=== PATIENT | male | born 1955 | race Caucasian/White ===

== ENCOUNTER 2017-02-17 21:28 | Emergency (ER) | payer MEDICARE ==
[~2017-02-17] VITALS: Ht 177.8 cm; Wt 110.0 kg
--- NOTE | 2017-02-17 23:39 | PD ---
HPI Chief Complaint: Alcohol/Drug Intoxication Time Seen by Provider: 23:29 Travel History International Travel<30 days: No Contact w/Intl Traveler<30days: No Traveled to known affect area: No History of Present Illness HPI Patient is a 61-year-old male brought to the emergency room by EMS for alcohol intoxication. Reports that patient was found intoxicated, he could not tell EMS where he lives. Patient was brought to the emergency room. Patient admits to drinking 2 large beers today, denies suicidal or homicidal coagulations. Patient with no complaints at this time. Patient reports that he recently moved from [place] to [facility], reports that this is why he does not know his address. [facility] Social History Alcohol Use: Yes Tobacco Use: Yes Substance Use: No Allergies-Medications (Allergen,Severity, Reaction): Coded Allergies: No Known Allergies (Unverified , 02/17/17) Reported Meds & Prescriptions Reported Meds & Active Scripts Active Active Prescriptions or Reported Medications Unobtainable Review of Systems ROS Limitations: Intoxication General / Constitutional: No: Fever Eyes: No: Visual changes HENT: No: Headaches Cardiovascular: No: Chest Pain or Discomfort Respiratory: No: Shortness of Breath Gastrointestinal: No: Abdominal Pain Genitourinary: No: Dysuria Musculoskeletal: No: Pain Skin: No Rash Neurologic: No: Weakness Psychiatric: No: Depression Endocrine: No: Polydipsia Hematologic/Lymphatic: No: Easy Bruising Physical Exam Narrative GENERAL: No acute distress, nontoxic SKIN: Focused skin assessment warm/dry. HEAD: Atraumatic. Normocephalic. EYES: Pupils equal and round. No scleral icterus. No injection or drainage. ENT: No nasal bleeding or discharge. Mucous membranes pink and moist. NECK: Trachea midline. No JVD. CARDIOVASCULAR: Regular rate and rhythm. No murmur appreciated. RESPIRATORY: No accessory muscle use. Clear to auscultation. Breath sounds equal bilaterally. GASTROINTESTINAL: Abdomen soft, non-tender, nondistended. Hepatic and splenic margins not palpable. MUSCULOSKELETAL: No obvious deformities. No clubbing. No cyanosis. No edema. NEUROLOGICAL: Awake and alert. PSYCHIATRIC: Patient intoxicated appearing Data Data Last Documented VS Vital Signs Date Time Temp Pulse Resp B/P Pulse Ox O2 Delivery O2 Flow Rate FiO2 02/17/17 23:32 16 Orders Comprehensive Metabolic Panel (02/17/17 23:33) Drug Screen, Random Urine (02/17/17 23:33) Alcohol (Ethanol) (02/17/17 23:33) Salicylates (Aspirin) (02/17/17 23:33) Tylenol (Acetaminophen) (02/17/17 23:33) Labs Laboratory Tests Test 02/17/17 23:45 Sodium Level 142 MEQ/L Potassium Level 3.8 MEQ/L Chloride Level 103 MEQ/L Carbon Dioxide Level 30.2 MEQ/L Anion Gap 9 MEQ/L Blood Urea Nitrogen 13 MG/DL Creatinine 1.25 MG/DL Estimat Glomerular Filtration 58 ML/MIN Rate Random Glucose 82 MG/DL Calcium Level 8.3 MG/DL Total Bilirubin 0.3 MG/DL Aspartate Amino Transf 14 U/L (AST/SGOT) Alanine Aminotransferase 22 U/L (ALT/SGPT) Alkaline Phosphatase 53 U/L Total Protein 6.8 GM/DL Albumin 3.6 GM/DL Salicylates Level 4.7 MG/DL Acetaminophen Level LESS THAN 2.0 MCG/ML Ethyl Alcohol Level 231 MG/DL [facility] Medical Decision Making Medical Screen Exam Complete: Yes Emergency Medical Condition: Yes Interpretation(s) Vital Signs Date Time Temp Pulse Resp B/P Pulse Ox O2 Delivery O2 Flow Rate FiO2 02/17/17 23:32 16 Differential Diagnosis Differential includes alcohol intoxication, drug abuse, electrolyte abnormality Narrative Course 61-year-old male who presents to emergency room with complaints of acute alcohol intoxication. Patient was brought to emergency room under [place] as he was too intoxicated to tell authorities where he lived. Patient was brought to ER intoxicated. Denies suicidal or homicidal ideations. Plan to obtain alcohol level, UDS, BMP and monitor patient Laboratory Tests Test 02/17/17 23:45 Sodium Level 142 MEQ/L (136-145) Potassium Level 3.8 MEQ/L (3.5-5.1) Chloride Level 103 MEQ/L (98-107) Carbon Dioxide Level 30.2 MEQ/L (21.0-32.0) Anion Gap 9 MEQ/L (5-15) Blood Urea Nitrogen 13 MG/DL (7-18) Creatinine 1.25 MG/DL (0.60-1.30) Estimat Glomerular Filtration 58 ML/MIN (>89) Rate Random Glucose 82 MG/DL (74-106) Calcium Level 8.3 MG/DL (8.5-10.1) Total Bilirubin 0.3 MG/DL (0.2-1.0) Aspartate Amino Transf 14 U/L (15-37) (AST/SGOT) Alanine Aminotransferase 22 U/L (12-78) (ALT/SGPT) Alkaline Phosphatase 53 U/L (45-117) Total Protein 6.8 GM/DL (6.4-8.2) Albumin 3.6 GM/DL (3.4-5.0) Salicylates Level 4.7 MG/DL (2.8-20.0) Acetaminophen Level LESS THAN 2.0 MCG/ML (10.0-30.0) Ethyl Alcohol Level 231 MG/DL (0-5) Diagnosis Primary Impression: Alcohol intoxication Patient Instructions: General Instructions Additional Instructions: Please drink responsibly Follow up with your primary care doctor Return to ER as needed Scripts Unable to Obtain Active Prescriptions or Reported Meds Chela Gillespie DO Feb 17, 2017 23:39
[2017-02-18 00:38] LABS: ALT (GPT) 22 U/L (12-78); ANION GAP 9 MEQ/L (5-15); AST (GOT) 14 U/L (15-37); BICARBONATE 30.2 MEQ/L (21.0-32.0); BLOOD UREA NITROGEN 13 MG/DL (7-18); CHLORIDE 103 MEQ/L (98-107); GLOMERULAR FILTRATION RATE 58 ML/MIN (>89); POTASSIUM 3.8 MEQ/L (3.5-5.1); SODIUM (NA) 142 MEQ/L (136-145)
[2017-02-18 00:40] LABS: ACETAMINOPHEN LESS THAN 2.0 MCG/ML (10.0-30.0); ALKALINE PHOSPHATASE 53 U/L (45-117); TOTAL BILIRUBIN ADULT 0.3 MG/DL (0.2-1.0)
[2017-02-18 01:14] VITALS: BP 127/78; PULSE 89; RESP 18; TEMP 98.1; O2SAT 98
[2017-02-18] MEDS ORDERED: HALO100P IM (01:15)
[2017-02-18 02:23] LABS: AMPHETAMINE, URINE NEG (NEG); BARBITURATES, URINE NEG (NEG); COCAINE, URINE NEG (NEG)
== END 2017-02-18 06:19 | disposition home or self-care (01) ==
LOC: NEPD 21:28
DX: F10.920 Alcohol use, unspecified with intoxication, uncomplicated (principal); F17.290 Nicotine dependence, other tobacco product, uncomplicated
CPT/HCPCS: 80053; 80307; 99283

== ENCOUNTER 2017-08-29 13:25 | Emergency (ER) | payer MEDICARE, OTHER ==
[~2017-08-29 13:25] MED LIST: HALO100P IM
[2017-08-29 13:28] VITALS: BP 171/94; PULSE 88; RESP 14; TEMP 98.6; O2SAT 96
[2017-08-29 13:46] VITALS: BP 158/91; PULSE 92; RESP 21; O2SAT 97
[2017-08-29] MEDS ORDERED: ASPI-516 PO (14:01)
[2017-08-29] MEDS ORDERED: BENZ0.5T PO (14:01)
[2017-08-29] MEDS ORDERED: OLAN7.5T PO (14:01)
[2017-08-29] MEDS ORDERED: ATEN25TA PO (14:01)
[2017-08-29] MEDS ORDERED: CLON0.5T PO (14:01)
--- NOTE | 2017-08-29 14:13 | PD ---
HPI Chief Complaint: General Weakness Time Seen by Provider: 13:58 Travel History International Travel<30 days: No Contact w/Intl Traveler<30days: No Traveled to known affect area: No History of Present Illness HPI 62-year-old male patient with history of hypertension, is here because of 3 weeks history of dizziness, feeling unsteady, he states this started after he fell and hit his head. He denies any chest pains, shortness of breath, but states that in the last day he has had a few episodes of dark diarrhea, has been taking Pepto-Bismol. He denies any chest pains, shortness of breath, or other issues. Modifying Factors: None Associated Signs & Symptoms: Fall and head trauma 3 weeks ago, dizziness, dark stools Risk Factors: None PFSH Past Medical History Cardiovascular Problems: Yes Diminished Hearing: No Hypertension: Yes Psychiatric: Yes (BIPOLAR) Past Surgical History Abdominal Surgery: Yes (UMBILICAL HERNIA ) Other Surgery: Yes (VASECTOMY ) Social History Alcohol Use: Yes Tobacco Use: Yes (A PACK A DAY ) Substance Use: No Allergies-Medications (Allergen,Severity, Reaction): Coded Allergies: No Known Allergies (Verified Adverse Reaction, Unknown, 08/29/17) Reported Meds & Prescriptions Reported Meds & Active Scripts Active Reported Benztropine (Benztropine Mesylate) 0.5 Mg Tab 2 Mg PO BID Olanzapine 7.5 Mg Tab 7.5 Mg PO HS Atenolol 25 Mg Tab 25 Mg PO DAILY Aspirin 81 Mg Chew 81 Mg PO DAILY Clonazepam 0.5 Mg Tab 0.5 Mg PO BID Haldol Decanoate Inj (Haloperidol Decanoate) 100 Mg/Ml Inj 100 Mg IM Q28D Review of Systems Except as stated in HPI: all other systems reviewed are Neg Physical Exam Narrative GENERAL: Well-developed elderly white male patient currently in mild distress. Awake and oriented 3. SKIN: Focused skin assessment warm/dry. HEAD: Atraumatic. Normocephalic. EYES: Pupils equal and round. No scleral icterus. No injection or drainage. ENT: No nasal bleeding or discharge. Mucous membranes pink and moist. NECK: Trachea midline. No JVD. CARDIOVASCULAR: Regular rate and rhythm. No murmur appreciated. RESPIRATORY: No accessory muscle use. Clear to auscultation. Breath sounds equal bilaterally. GASTROINTESTINAL: Abdomen soft, non-tender, nondistended. Hepatic and splenic margins not palpable. MUSCULOSKELETAL: No obvious deformities. No clubbing. No cyanosis. No edema. NEUROLOGICAL: Awake and alert. No obvious cranial nerve deficits. Motor grossly within normal limits. Normal speech. No pronator drift. Negative Romberg. PSYCHIATRIC: Appropriate mood and affect; insight and judgment normal. Data Data Last Documented VS Vital Signs Date Time Temp Pulse Resp B/P (MAP) Pulse Ox O2 Delivery O2 Flow Rate FiO2 08/29/17 14:18 17 98 Room Air 08/29/17 13:46 92 08/29/17 13:28 98.6 Orders Orders Electrocardiogram (08/29/17 14:01) Complete Blood Count With Diff (08/29/17 14:) Comprehensive Metabolic Panel (08/29/17 14:) Magnesium (Mg) (08/29/17 14:01) Ckmb (Isoenzyme) Profile (08/29/17 14:01) Troponin I (08/29/17 14:) Act Partial Throm Time (Ptt) (08/29/17 14:01) Prothrombin Time / Inr (Pt) (08/29/17 14:01) Urinalysis - C+S If Indicated (08/29/17 14:01) Chest, Single Ap (08/29/17 14:01) Ct Brain W/O Iv Contrast(Rout) (08/29/17 14:01) Ecg Monitoring (08/29/17 14:01) Iv Access Insert/Monitor (08/29/17 14:01) Oximetry (08/29/17 14:01) Sodium Chloride 0.9% Flush (Ns Flush) (08/29/17 14:15) Labs Laboratory Tests Test 08/29/17 14:24 White Blood Count 9.8 TH/MM3 Red Blood Count 4.67 MIL/MM3 Hemoglobin 16.2 GM/DL Hematocrit 46.1 % Mean Corpuscular Volume 98.7 FL Mean Corpuscular Hemoglobin 34.8 PG Mean Corpuscular Hemoglobin Concent 35.2 % Red Cell Distribution Width 13.3 % Platelet Count 247 TH/MM3 Mean Platelet Volume 7.9 FL Neutrophils (%) (Auto) 66.6 % Lymphocytes (%) (Auto) 16.5 % Monocytes (%) (Auto) 14.4 % Eosinophils (%) (Auto) 1.9 % Basophils (%) (Auto) 0.6 % Neutrophils # (Auto) 6.5 TH/MM3 Lymphocytes # (Auto) 1.6 TH/MM3 Monocytes # (Auto) 1.4 TH/MM3 Eosinophils # (Auto) 0.2 TH/MM3 Basophils # (Auto) 0.1 TH/MM3 CBC Comment DIFF FINAL Differential Comment Prothrombin Time 10.0 SEC Prothromb Time International Ratio 1.0 RATIO Activated Partial Thromboplast Time 26.6 SEC Urine Color LIGHT-YELLOW Urine Turbidity CLEAR Urine pH 5.0 Urine Specific [place] 1.002 Urine Protein NEG mg/dL Urine Glucose (UA) NEG mg/dL Urine Ketones NEG mg/dL Urine Occult Blood SMALL Urine Nitrite NEG Urine Bilirubin NEG Urine Urobilinogen LESS THAN 2.0 MG/DL Urine Leukocyte Esterase NEG Urine RBC LESS THAN 1 /hpf Microscopic Urinalysis Comment CULT NOT INDICATED Blood Urea Nitrogen 6 MG/DL Creatinine 0.98 MG/DL Random Glucose 73 MG/DL Total Protein 7.2 GM/DL Albumin 3.8 GM/DL Calcium Level 8.9 MG/DL Magnesium Level 2.4 MG/DL Alkaline Phosphatase 73 U/L Aspartate Amino Transf (AST/SGOT) 22 U/L Alanine Aminotransferase (ALT/SGPT) 31 U/L Total Bilirubin 0.6 MG/DL Sodium Level 138 MEQ/L Potassium Level 3.6 MEQ/L Chloride Level 103 MEQ/L Carbon Dioxide Level 25.3 MEQ/L Anion Gap 10 MEQ/L Estimat Glomerular Filtration Rate 77 ML/MIN Total Creatine Kinase 88 U/L Troponin I LESS THAN 0.02 NG/ML MDM Medical Decision Making Medical Screen Exam Complete: Yes Emergency Medical Condition: Yes Medical Record Reviewed: Yes Interpretation(s) EKG shows NSR, no ST elevation or depression, and no arrhythmias. No significant T-wave inversions. Laboratory Tests Test 08/29/17 14:24 Mean Corpuscular Hemoglobin 34.8 PG (27.0-34.0) Monocytes (%) (Auto) 14.4 % (0.0-8.0) Monocytes # (Auto) 1.4 TH/MM3 (0-0.9) Urine Occult Blood SMALL (NEG) Blood Urea Nitrogen 6 MG/DL (7-18) Random Glucose 73 MG/DL (74-106) Estimat Glomerular Filtration Rate 77 ML/MIN (>89) Troponin I LESS THAN 0.02 NG/ML Last [address] 08/29/17 1401 Impressions: Service Date/Time: Tuesday, August 29, 2017 14:36 - CONCLUSION: 1. No acute intracranial abnormality. Junior Barboza MD Differential Diagnosis ICH versus concussion versus GI bleed versus dehydration versus metabolic issues versus medication side effect Narrative Course Lab work did not show significant metabolic issues. CT of the brain did not show any signs of acute intracranial processes. EKG did not show dysrhythmias. Abdomen is benign and I do not suspect an acute intra-abdominal process. He has no focal neurological deficits. Hemoccult testing was done and is negative. At this point, my plan would be to release him at follow-up the primary care doctor. Return for new issues as needed. The plan has been discussed with him and he states understanding. [facility] Point of Care Internal Pos. & Neg. Controls: Passed Fecal Specimen Occult Blood: Negative Diagnosis Primary Impression: Dizziness Disposition: 01 DISCHARGE HOME Condition: Stable SoonGeri drake MD Aug 29, 2017 14:13
[2017-08-29] MEDS ORDERED: SODIUM CHLORIDE 0.9% FLUSH 10 ML FLUSH IVF PRN (14:15)
[2017-08-29 14:18] VITALS: RESP 17; O2SAT 98
[2017-08-29 14:29] LABS: AUTOMATED NEUTROPHIL # 6.5 TH/MM3 (1.8-7.7); BASOPHIL # 0.1 TH/MM3 (0-0.2); BASOPHIL % 0.6 % (0.0-2.0); EOSINOPHIL # 0.2 TH/MM3 (0-0.4); EOSINOPHIL % 1.9 % (0.0-4.0); HEMATOCRIT 46.1 % (39.0-51.0); HEMOGLOBIN 16.2 GM/DL (13.0-17.0); LYMPH % 16.5 % (9.0-44.0); LYMPHOCYTE # 1.6 TH/MM3 (1.0-4.8); MEAN CELL VOLUME 98.7 FL (80.0-100.0); MEAN CORPUSCULAR HEMOGLOBIN 34.8 PG (27.0-34.0); MEAN CORPUSCULAR HGB CONC 35.2 % (32.0-36.0); MEAN PLATELET VOLUME 7.9 FL (7.0-11.0); MONO % 14.4 % (0.0-8.0); MONOCYTE # 1.4 TH/MM3 (0-0.9); NEUT % 66.6 % (16.0-70.0); PLATELET COUNT 247 TH/MM3 (150-450); RED BLOOD COUNT 4.67 MIL/MM3 (4.50-5.90); RED CELL DISTRIBUTION WIDTH 13.3 % (11.6-17.2); WHITE BLOOD COUNT 9.8 TH/MM3 (4.0-11.0)
[2017-08-29 14:43] LABS: ALBUMIN 3.8 GM/DL (3.4-5.0); ALT (GPT) 31 U/L (12-78); AST (GOT) 22 U/L (15-37); BICARBONATE 25.3 MEQ/L (21.0-32.0); BLOOD UREA NITROGEN 6 MG/DL (7-18); CALCIUM 8.9 MG/DL (8.5-10.1); CHLORIDE 103 MEQ/L (98-107); CREATININE 0.98 MG/DL (0.60-1.30); GLOMERULAR FILTRATION RATE 77 ML/MIN (>89); GLUCOSE,RANDOM 73 MG/DL (74-106); MAGNESIUM 2.4 MG/DL (1.5-2.5); SODIUM (NA) 138 MEQ/L (136-145)
[2017-08-29 14:47] LABS: ALKALINE PHOSPHATASE 73 U/L (45-117); TOTAL BILIRUBIN ADULT 0.6 MG/DL (0.2-1.0); TOTAL PROTEIN 7.2 GM/DL (6.4-8.2); TROPONIN I LESS THAN 0.02 NG/ML (0.02-0.05)
[2017-08-29 15:00] LABS: BILIRUBIN, URINE NEG (NEG); BLOOD, URINE SMALL (NEG); GLUCOSE,URINE NEG (NEG); KETONE, URINE NEG (NEG); NITRITE,URINE NEG (NEG); URINE COLOR LIGHT-YELLOW (YELLW/STRAW); URINE LEUKOCYTE ESTERASE NEG (NEG)
--- NOTE | 2017-08-29 15:03 | RADRPT ---
EXAM DATE/TIME: 08/29/2017 14:36 [facility] COMPARISON: No previous studies available for comparison. INDICATIONS : Feeling weak and tired RADIATION DOSE: 43.92 CTDIvol (mGy) MEDICAL HISTORY : Hypertension. SURGICAL HISTORY : None. ENCOUNTER: Initial ACUITY: 1 day PAIN SCALE: 0/10 LOCATION: cranial TECHNIQUE: Multiple contiguous axial images were obtained of the head. Using automated exposure control and adj ustment of the mA and/or kV according to patient size, radiation dose was kept as low as reasonably a chievable to obtain optimal diagnostic quality images. DICOM format image data is available electro nically for review and comparison. FINDINGS: CEREBRUM: The ventricles are normal for age. No evidence of midline shift, mass lesion, hemorrhage or acute in farction. No extra-axial fluid collections are seen. POSTERIOR FOSSA: The cerebellum and brainstem are intact. The 4th ventricle is midline. The cerebellopontine angle i s unremarkable. EXTRACRANIAL: The visualized portion of the orbits is intact. SKULL: The calvaria is intact. No evidence of skull fracture. CONCLUSION: 1. No acute intracranial abnormality. Junior Barboza MD on August 29, 2017 at 14:59 Board Certified Radiologist. This report was verified electronically.
--- NOTE | 2017-08-29 15:13 | RADRPT ---
EXAM DATE/TIME: 08/29/2017 14:11 [facility] COMPARISON: No previous studies available for comparison. INDICATIONS : Palpitations, weakness, short of breath today MEDICAL HISTORY : None. SURGICAL HISTORY : None. ENCOUNTER: Initial ACUITY: 1 day PAIN SCORE: 0/10 LOCATION: Bilateral chest FINDINGS: A single view of the chest demonstrates the lungs to be symmetrically aerated without evidence of mas s, infiltrate or effusion. Heart size is upper limits of normal. Osseous structures are intact with some degenerative spurring of the dorsal spine. CONCLUSION: No acute cardiopulmonary process Frank Carrillo MD on August 29, 2017 at 15:10 Board Certified Radiologist. This report was verified electronically.
--- NOTE | 2017-08-30 18:22 | EKG ---
Date Performed: 08/29/2017 Time Performed: 14:17:57 PTAGE: 62 years EKG: Sinus rhythm WITH FIRST DEGREE AV BLOCK POSSIBLE LEFT ATRIAL ENLARGEMENT POSSIBLE RIGHT VENTRICULAR CONDUCTION DE LAY ABNORMAL ECG PREVIOUS TRACING : 08/29/2017 13.53 DOCTOR: Lucio Marshall Interpretating Date/Time 08/30/2017 18:21:01
== END 2017-08-29 16:18 | disposition home or self-care (01) ==
LOC: NEPE 13:25
DX: R42 Dizziness and giddiness (principal); R94.31 Abnormal electrocardiogram [ECG] [EKG]; I10 Essential (primary) hypertension; F31.9 Bipolar disorder, unspecified; F17.210 Nicotine dependence, cigarettes, uncomplicated; Z79.82 Long term (current) use of aspirin
CPT/HCPCS: 70450; 71045; 80053; 81001; 82550; 83735; 84484; 85025; 85610; 85730; 93005

== ENCOUNTER 2017-12-06 08:39 | Emergency (ER) | payer OTHER ==
[~2017-12-06] VITALS: Ht 177.8 cm; Wt 110.0 kg
[~2017-12-06 08:39] MED LIST changes: +ASPI-516 PO; +ATEN25TA PO; +BENZ0.5T PO; +CLON0.5T PO; +OLAN7.5T PO
[2017-12-06 08:42] VITALS: BP 160/89; PULSE 63; RESP 17; TEMP 97.2; O2SAT 99
[2017-12-06 08:55] VITALS: BP 159/87; PULSE 62; RESP 18; O2SAT 99
[2017-12-06] MEDS ORDERED: ZIPRASIDONE MESYLATE 20 MG VIAL IM ONE (09:30)
[2017-12-06] MEDS ORDERED: HALOPERIDOL LACTATE 5 MG/ML AMP IM ONE (09:30)
[2017-12-06 10:05] LABS: AUTOMATED NEUTROPHIL # 4.3 TH/MM3 (1.8-7.7); BASOPHIL % 0.8 % (0.0-2.0); EOSINOPHIL # 0.1 TH/MM3 (0-0.4); HEMATOCRIT 44.5 % (39.0-51.0); HEMOGLOBIN 15.1 GM/DL (13.0-17.0); LYMPH % 18.5 % (9.0-44.0); LYMPHOCYTE # 1.2 TH/MM3 (1.0-4.8); MEAN CELL VOLUME 98.8 FL (80.0-100.0); MEAN CORPUSCULAR HEMOGLOBIN 33.5 PG (27.0-34.0); MEAN CORPUSCULAR HGB CONC 33.9 % (32.0-36.0); MONO % 11.8 % (0.0-8.0); MONOCYTE # 0.8 TH/MM3 (0-0.9); NEUT % 66.9 % (16.0-70.0); PLATELET COUNT 226 TH/MM3 (150-450); WHITE BLOOD COUNT 6.4 TH/MM3 (4.0-11.0)
--- NOTE | 2017-12-06 10:08 | PD ---
HPI Chief Complaint: Psychiatric Symptoms Time Seen by Provider: 09:17 Travel History International Travel<30 days: No Contact w/Intl Traveler<30days: No Traveled to known affect area: No History of Present Illness HPI 62-year-old male with history of bipolar, is brought in by local police due to his complaints of hallucinations, and request to go to the hospital. Patient was triaged and brought back to [facility]. Patient immediately took all his clothes off and stayed in his doorway. He then ran down the qureshi stating that [place] was coming. The patient was talked back into his room and placed in soft restraints. He does admit to auditory hallucinations. He denies suicidal or homicidal ideation. He denies visual hallucinations. He requests Geodon specifically. He is an unreliable historian. He has no complaints of pain or injury. He has no known drug allergies. PFSH Past Medical History Bipolar Disorder: Yes Cardiovascular Problems: Yes Diminished Hearing: No Hypertension: Yes Psychiatric: Yes (BIPOLAR) Past Surgical History Abdominal Surgery: Yes (UMBILICAL HERNIA ) Other Surgery: Yes (VASECTOMY ) Social History Alcohol Use: Yes (possible heavy use, states trying to wean himself off) Tobacco Use: Yes (A PACK A DAY ) Substance Use: No Allergies-Medications (Allergen,Severity, Reaction): Coded Allergies: No Known Allergies (Verified Adverse Reaction, Unknown, 08/29/17) Reported Meds & Prescriptions Reported Meds & Active Scripts Active Reported Benztropine (Benztropine Mesylate) 0.5 Mg Tab 2 Mg PO BID Olanzapine 7.5 Mg Tab 7.5 Mg PO HS Atenolol 25 Mg Tab 25 Mg PO DAILY Aspirin 81 Mg Chew 81 Mg PO DAILY Clonazepam 0.5 Mg Tab 0.5 Mg PO BID Haldol Decanoate Inj (Haloperidol Decanoate) 100 Mg/Ml Inj 100 Mg IM Q28D Review of Systems ROS Limitations: Psychotic, Poor Historian Except as stated in HPI: all other systems reviewed are Neg General / Constitutional: No: Fever Eyes: No: Visual changes HENT: No: Headaches Cardiovascular: No: Chest Pain or Discomfort Respiratory: No: Shortness of Breath Gastrointestinal: No: Abdominal Pain Genitourinary: No: Dysuria Musculoskeletal: No: Pain Skin: No Rash Neurologic: No: Weakness Psychiatric: No: Depression Endocrine: No: Polydipsia Hematologic/Lymphatic: No: Easy Bruising Physical Exam Exam Limitations: Poor Historian, Uncooperative, Combative, Psychotic Narrative GENERAL: Patient appears psychotic but otherwise in no medical distress. SKIN: Warm and dry. Normal color. Normal turgor. No signs of injury. HEAD: Atraumatic. Normocephalic. EYES: Pupils equal and round. No scleral icterus. No injection or drainage. ENT: No nasal bleeding or discharge. Mucous membranes pink and moist. Pharynx is clear. Airways patent. NECK: Trachea midline. Supple. CARDIOVASCULAR: Regular rate and rhythm. RESPIRATORY: No accessory muscle use. Clear to auscultation. Breath sounds equal bilaterally. GASTROINTESTINAL: Abdomen soft, non-tender, nondistended. Hepatic and splenic margins not palpable. MUSCULOSKELETAL: Extremities without clubbing, cyanosis, or edema. No obvious deformities. NEUROLOGICAL: Awake and alert. No obvious cranial nerve deficits. Motor grossly within normal limits. Five out of 5 muscle strength in the arms and legs. Normal speech. Data Data Last Documented VS Vital Signs Date Time Temp Pulse Resp B/P (MAP) Pulse Ox O2 Delivery O2 Flow Rate FiO2 12/06/17 08:55 62 18 159/87 (111) 99 Room Air 12/06/17 08:42 97.2 Orders Orders Complete Blood Count With Diff (12/06/17 09:16) Comprehensive Metabolic Panel (12/06/17 09:16) Thyroid Stimulating Hormone (12/06/17 09:16) Psych Screen (12/06/17 09:16) Drug Screen, Random Urine (12/06/17 09:16) Alcohol (Ethanol) (12/06/17 09:16) Ziprasidone Inj (Geodon Inj) (12/06/17 09:30) Haloperidol Inj (Haldol Inj) (12/06/17 09:30) Restraints Non-Violent TRUNG.Q3H (12/06/17 09:40) Labs Laboratory Tests Test 12/06/17 09:47 [facility] Medical Decision Making Medical Screen Exam Complete: Yes Emergency Medical Condition: Yes Medical Record Reviewed: Yes Differential Diagnosis Bipolar disorder. Psychosis. Need for psychiatric eval. Narrative Course Patient appears medically stable at time of exam. Psychiatric labs ordered per protocol. Patient is given 10 mg Geodon IM. Patient is given 5 mg Haldol IM. Psychiatric screen is ordered. Patient is medically cleared for psychiatric evaluation. Diagnosis Primary Impression: Medical clearance for psychiatric admission Condition: Stable Antonio Wadsworth December 06, 2017 10:08
[2017-12-06 10:21] VITALS: BP 171/76; PULSE 68; RESP 18; O2SAT 98
[2017-12-06 10:38] LABS: ALBUMIN 3.7 GM/DL (3.4-5.0); AST (GOT) 19 U/L (15-37); BICARBONATE 27.6 MEQ/L (21.0-32.0); BLOOD UREA NITROGEN 10 MG/DL (7-18); CHLORIDE 104 MEQ/L (98-107); CREATININE 1.23 MG/DL (0.60-1.30); GLOMERULAR FILTRATION RATE 59 ML/MIN (>89); GLUCOSE,RANDOM 154 MG/DL (74-106); SODIUM (NA) 142 MEQ/L (136-145)
[2017-12-06 10:39] LABS: ALT (GPT) 31 U/L (12-78)
[2017-12-06 10:48] LABS: ALKALINE PHOSPHATASE 65 U/L (45-117); TOTAL BILIRUBIN ADULT 0.8 MG/DL (0.2-1.0)
--- NOTE | 2017-12-06 13:46 | PD ---
History of Present Illness Chief Complaint: Psychiatric Symptoms Time Seen by Provider: 12:55 Travel History International Travel<30 Days: No Contact w/Intl Traveler<30days: No Known affected area: No Legal Status Legal Status: Voluntary History of Present Illness: History of Present Illness HPI 62-year-old , male with history of bipolar disorder, brought in by local police due to his complaints of hallucinations, and request to go to the hospital. Upon arriving to the ED the patient proceeded to take his clothes off. He then ran down the qureshi stating that Franklin was coming. Patient received ETO of Bon. EMR is reviewed. The patient has one previous visit to the ED in February 2017. He was brought here under a Danielson act after he was found intoxicated. Current toxicology is negative. Patient has been monitored in J pod. He has had no other further episodes of taken his clothes off. Patient was seen with REBEKAH Rodrigues student present. He is alert, and oriented, he is calm and cooperative. His speech is clear and logical. He tells me that over the years he has these episodes in which he begins to hear voices that tell him to get undressed. He acts upon those voices and usually gets hospitalized after that. He goes on to state that he no longer is hearing any voices and that he feels that he is stable to go home. The patient does not appear internally preoccupied. No evidence of raleigh. He denies any suicidal or homicidal ideation, intent or plan. The patient goes on to state that he has been trying to cut down on his use of alcohol and that he has been drinking approximately 2 beers per day. He denies that he had been drinking earlier today. Patient gave permission for us to contact his psychiatric provider at [facility]. I placed a call to Sanford Salcido who was covering for Sanford return my call. She informs me that the patient was at [facility] earlier during the day and that they saw him in the bushes naked. At that point they provided him with some clothing and he requested that he come to the hospital. The patient had a similar episode a couple of weeks ago and was at [facility]. At that time ,as per notes in his record, he was under the influence of alcohol. PFSH Past Medical History Bipolar Disorder: Yes Cardiovascular Problems: Yes Diminished Hearing: No Hypertension: Yes Psychiatric: Yes (BIPOLAR) Past Surgical History Abdominal Surgery: Yes (UMBILICAL HERNIA ) Other Surgery: Yes (VASECTOMY ) Psychiatric History Psychiatric History Hx Psychiatric Treatment: Reports extensive psychiatric history with at least 100 lifetime hospitalizations. His last psychiatric hospitalization was a week ago at [facility] for similar episode. He is currently receiving outpatient treatment at [facility]. He is on a long-acting injectable. Patient denies any previous suicidal attempts. He reports medication compliance. History of Inpatient Treatment: Yes Guns or firearms in home: No Social History Patient moved from [place] 1-1/2 year ago. He lives by himself. He has completed 112 grade education. 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 Hx Alcohol Use: Yes (possible heavy use, states trying to wean himself off) Hx Tobacco Use: Yes (A PACK A DAY ) Hx Substance Use: Yes Substance Use Type: Alcohol Other Substances Used: DRINKING SINCE AGE 14 Hx of Substance Use Treatment: Yes Family Psychiatric History Mother with report of bipolar disorder. Allergies-Medications (Allergen,Severity, Reaction): Coded Allergies: No Known Allergies (Verified Adverse Reaction, Unknown, 08/29/17) Reported Meds & Prescriptions Reported Meds & Active Scripts Active Reported Benztropine (Benztropine Mesylate) 0.5 Mg Tab 2 Mg PO BID Olanzapine 7.5 Mg Tab 7.5 Mg PO HS Atenolol 25 Mg Tab 25 Mg PO DAILY Aspirin 81 Mg Chew 81 Mg PO DAILY Clonazepam 0.5 Mg Tab 0.5 Mg PO BID Haldol Decanoate Inj (Haloperidol Decanoate) 100 Mg/Ml Inj 100 Mg IM Q28D Review of Systems Psychiatric: DENIES: Anxiety, Confusion, Mood changes, Depression, Hallucinations, Agitation, Suicidal Ideation, Homicidal Ideation, Delusions Mental Status Examination Appearance: Appropriate Consciousness: Alert Orientation: x4 Motor Activity: Normal gait Speech: Unremarkable Language: Adequate Fund of Knowledge: Adequate Attention and Concentration: Adequate Memory: Unremarkable Mood: Appropriate Affect: Blunt Thought Process & Associations: Intact, Logical, Goal directed Thought Content: Appropriate Hallucination Type: None Delusion Type: None Suicidal Ideation: No Suicidal Plan: No Suicidal Intention: No Homicidal Ideation: No Homicidal Plan: No Homicidal Intention: No Insight: Adequate Judgment: Adequate MDM Medical Decision Making Medical Record Reviewed: Yes Assessment/Plan History of Present Illness HPI 62-year-old , male with history of bipolar disorder, brought in by local police due to his complaints of hallucinations, and request to go to the hospital. Upon arriving to the ED the patient proceeded to take his clothes off. He then ran down the qureshi stating that Franklin was coming. Patient received ETO of Geodon. He was monitored in J pod and presented no further behavioral concerns. At the time of the evaluation he presents no evidence of any psychosis, no raleigh, no suicidal or homicidal ideation. He is requesting to be discharged and wants to follow up with [facility]. We contacted [facility] and the patient has an appointment scheduled for tomorrow. At this time the patient does not meet criteria for inpatient psychiatric treatment and does not meet criteria for Betancur act. I suspect his behavior is related to his use of alcohol. He is provided psychoeducation. Psychiatrically clear for discharge from the ED. . Orders Orders Complete Blood Count With Diff (12/06/17 09:16) Comprehensive Metabolic Panel (12/06/17 09:16) Thyroid Stimulating Hormone (12/06/17 09:16) Psych Screen (12/06/17 09:16) Drug Screen, Random Urine (12/06/17 09:16) Alcohol (Ethanol) (12/06/17 09:16) Ziprasidone Inj (Geodon Inj) (12/06/17 09:30) Haloperidol Inj (Haldol Inj) (12/06/17 09:30) Restraints Non-Violent TRUNG.Q3H (12/06/17 09:40) Diet Regular Basic (12/06/17 Lunch) Results Vital Signs Date Time Temp Pulse Resp B/P (MAP) Pulse Ox O2 Delivery O2 Flow Rate FiO2 12/06/17 10:21 68 18 171/76 (107) 98 Room Air 12/06/17 08:55 62 18 159/87 (111) 99 Room Air 12/06/17 08:42 97.2 63 17 160/89 (112) 99 Laboratory Tests Test 12/06/17 09:47 12/06/17 10:26 White Blood Count 6.4 Red Blood Count 4.50 Hemoglobin 15.1 Hematocrit 44.5 Mean Corpuscular Volume 98.8 Mean Corpuscular Hemoglobin 33.5 Mean Corpuscular Hemoglobin Concent 33.9 Red Cell Distribution Width 14.0 Platelet Count 226 Mean Platelet Volume 8.0 Neutrophils (%) (Auto) 66.9 Lymphocytes (%) (Auto) 18.5 Monocytes (%) (Auto) 11.8 Eosinophils (%) (Auto) 2.0 Basophils (%) (Auto) 0.8 Neutrophils # (Auto) 4.3 Lymphocytes # (Auto) 1.2 Monocytes # (Auto) 0.8 Eosinophils # (Auto) 0.1 Basophils # (Auto) 0.0 CBC Comment DIFF FINAL Differential Comment Blood Urea Nitrogen 10 Creatinine 1.23 Random Glucose 154 Total Protein 7.0 Albumin 3.7 Calcium Level 9.0 Alkaline Phosphatase 65 Aspartate Amino Transf (AST/SGOT) 19 Alanine Aminotransferase (ALT/SGPT) 31 Total Bilirubin 0.8 Sodium Level 142 Potassium Level 4.4 Chloride Level 104 Carbon Dioxide Level 27.6 Anion Gap 10 Estimat Glomerular Filtration Rate 59 Thyroid Stimulating Hormone 3rd Gen 1.100 Ethyl Alcohol Level LESS THAN 3 Urine Opiates Screen NEG Urine Barbiturates Screen NEG Urine Amphetamines Screen NEG Urine Benzodiazepines Screen NEG Urine Cocaine Screen NEG Urine Cannabinoids Screen NEG Diagnosis Primary Impression: Medical clearance for psychiatric admission Additional Impressions: Bipolar disorder Alcohol abuse Psychiatrically Cleared: Yes Med/ Other Pt Specific Info: No Meds Exist/No RX given Disposition: 01 DISCHARGE HOME Condition: Stable Problem Qualifiers Additional Impressions: Bipolar disorder Qualified Codes: F31.70 - Bipolar disorder, currently in remission, most recent episode unspecified Awa Bautista [facility] December 06, 2017 13:46
--- NOTE | 2017-12-06 14:22 | PD ---
Physical Exam Date Seen by Provider: December 06, 2017 Time Seen by Provider: 14:21 Narrative 62-year-old male previously medically cleared for psychiatric evaluation with auditory hallucinations, has been seen and evaluated by psychiatric staff and deemed psychiatrically stable for discharge at this time. Patient remains medically stable for discharge. Patient psychiatric follow-up will be based on the psychiatric note and recommendations. Data Data Last Documented VS Vital Signs Date Time Temp Pulse Resp B/P (MAP) Pulse Ox O2 Delivery O2 Flow Rate FiO2 12/06/17 10:21 68 18 171/76 (107) 98 Room Air 12/06/17 08:42 97.2 Orders Orders Complete Blood Count With Diff (12/06/17 09:16) Comprehensive Metabolic Panel (12/06/17 09:16) Thyroid Stimulating Hormone (12/06/17 09:16) Psych Screen (12/06/17 09:16) Drug Screen, Random Urine (12/06/17 09:16) Alcohol (Ethanol) (12/06/17 09:16) Ziprasidone Inj (Geodon Inj) (12/06/17 09:30) Haloperidol Inj (Haldol Inj) (12/06/17 09:30) Restraints Non-Violent TRUNG.Q3H (12/06/17 09:40) Diet Regular Basic (12/06/17 Lunch) Labs Laboratory Tests Test 12/06/17 09:47 12/06/17 10:26 White Blood Count 6.4 TH/MM3 Red Blood Count 4.50 MIL/MM3 Hemoglobin 15.1 GM/DL Hematocrit 44.5 % Mean Corpuscular Volume 98.8 FL Mean Corpuscular Hemoglobin 33.5 PG Mean Corpuscular Hemoglobin Concent 33.9 % Red Cell Distribution Width 14.0 % Platelet Count 226 TH/MM3 Mean Platelet Volume 8.0 FL Neutrophils (%) (Auto) 66.9 % Lymphocytes (%) (Auto) 18.5 % Monocytes (%) (Auto) 11.8 % Eosinophils (%) (Auto) 2.0 % Basophils (%) (Auto) 0.8 % Neutrophils # (Auto) 4.3 TH/MM3 Lymphocytes # (Auto) 1.2 TH/MM3 Monocytes # (Auto) 0.8 TH/MM3 Eosinophils # (Auto) 0.1 TH/MM3 Basophils # (Auto) 0.0 TH/MM3 CBC Comment DIFF FINAL Differential Comment Blood Urea Nitrogen 10 MG/DL Creatinine 1.23 MG/DL Random Glucose 154 MG/DL Total Protein 7.0 GM/DL Albumin 3.7 GM/DL Calcium Level 9.0 MG/DL Alkaline Phosphatase 65 U/L Aspartate Amino Transf (AST/SGOT) 19 U/L Alanine Aminotransferase (ALT/SGPT) 31 U/L Total Bilirubin 0.8 MG/DL Sodium Level 142 MEQ/L Potassium Level 4.4 MEQ/L Chloride Level 104 MEQ/L Carbon Dioxide Level 27.6 MEQ/L Anion Gap 10 MEQ/L Estimat Glomerular Filtration Rate 59 ML/MIN Thyroid Stimulating Hormone 3rd Gen 1.100 uIU/ML Ethyl Alcohol Level LESS THAN 3 MG/DL Urine Opiates Screen NEG Urine Barbiturates Screen NEG Urine Amphetamines Screen NEG Urine Benzodiazepines Screen NEG Urine Cocaine Screen NEG Urine Cannabinoids Screen NEG MDM Medical Record Reviewed: Yes Supervised Visit with ILEANA: Yes Narrative Course 62-year-old male previously medically cleared for psychiatric evaluation with auditory hallucinations, has been seen and evaluated by psychiatric staff and deemed psychiatrically stable for discharge at this time. Patient remains medically stable for discharge. Patient psychiatric follow-up will be based on the psychiatric note and recommendations. Diagnosis Primary Impression: Medical clearance for psychiatric admission Additional Impression: Bipolar disorder Patient Instructions: General Instructions Disposition: DISCHARGE HOME Condition: Stable Antonio Wadsworth December 06, 2017 14:22
== END 2017-12-06 14:35 | disposition home or self-care (01) ==
LOC: NEPD 08:39 → NEPJ 14:35
DX: F31.9 Bipolar disorder, unspecified (principal); I10 Essential (primary) hypertension; F17.200 Nicotine dependence, unspecified, uncomplicated
CPT/HCPCS: 80053; 80307; 84443; 85025; 96372; 99284; J1630; J3486

== ENCOUNTER 2017-12-08 10:11 | Inpatient (IN) | payer OTHER, MEDICARE ==
[~2017-12-08] VITALS: Ht 177.8 cm; Wt 93.0 kg
[2017-12-08 10:20] VITALS: BP 171/95; PULSE 78; RESP 16; TEMP 98.1; O2SAT 99
[2017-12-08] MEDS ORDERED: SODIUM CHLORIDE 0.9% FLUSH 10 ML FLUSH IV FLUSH PRN (10:30)
[2017-12-08] MEDS ORDERED: HALOPERIDOL LACTATE 5 MG/ML AMP IV ONE (10:30)
[2017-12-08 10:32] VITALS: RESP 16; O2SAT 98
[2017-12-08 10:51] LABS: BASOPHIL % 0.5 % (0.0-2.0); EOSINOPHIL # 0.2 TH/MM3 (0-0.4); EOSINOPHIL % 3.6 % (0.0-4.0); HEMATOCRIT 43.9 % (39.0-51.0); HEMOGLOBIN 14.8 GM/DL (13.0-17.0); LYMPH % 24.4 % (9.0-44.0); LYMPHOCYTE # 1.6 TH/MM3 (1.0-4.8); MEAN CELL VOLUME 98.4 FL (80.0-100.0); MEAN CORPUSCULAR HEMOGLOBIN 33.2 PG (27.0-34.0); MEAN CORPUSCULAR HGB CONC 33.8 % (32.0-36.0); MONO % 11.5 % (0.0-8.0); MONOCYTE # 0.8 TH/MM3 (0-0.9); PLATELET COUNT 262 TH/MM3 (150-450); RED BLOOD COUNT 4.46 MIL/MM3 (4.50-5.90); WHITE BLOOD COUNT 6.6 TH/MM3 (4.0-11.0)
[2017-12-08 11:10] LABS: ALBUMIN 3.6 GM/DL (3.4-5.0); AST (GOT) 19 U/L (15-37); BICARBONATE 28.5 MEQ/L (21.0-32.0); BLOOD UREA NITROGEN 10 MG/DL (7-18); CALCIUM 8.6 MG/DL (8.5-10.1); CHLORIDE 103 MEQ/L (98-107); CREATININE 1.16 MG/DL (0.60-1.30); GLOMERULAR FILTRATION RATE 63 ML/MIN (>89); GLUCOSE,RANDOM 102 MG/DL (74-106); SODIUM (NA) 140 MEQ/L (136-145)
--- NOTE | 2017-12-08 11:13 | PD ---
HPI Chief Complaint: Altered Mental Status Time Seen by Provider: 10:15 Travel History International Travel<30 days: No Contact w/Intl Traveler<30days: No Traveled to known affect area: No History of Present Illness HPI This is a 62-year-old male who was found running naked outside of his apartment. He reports that this is happened to him 3 times this week. He says that he is hearing voices telling him to take off his clothes and be mean to people. The thoughts are constant, severe, and are not getting better. He does acknowledge drinking some alcohol today, but "not that much". PFSH Past Medical History Bipolar Disorder: Yes Cardiovascular Problems: Yes Diminished Hearing: No Hypertension: Yes Psychiatric: Yes (BIPOLAR) Past Surgical History Abdominal Surgery: Yes (UMBILICAL HERNIA ) Other Surgery: Yes (VASECTOMY ) Social History Alcohol Use: Yes (possible heavy use, states trying to wean himself off) Tobacco Use: Yes (A PACK A DAY ) Substance Use: Yes Allergies-Medications (Allergen,Severity, Reaction): Coded Allergies: No Known Allergies (Verified Allergy, Unknown, 12/08/17) Reported Meds & Prescriptions Reported Meds & Active Scripts Active Reported Benztropine (Benztropine Mesylate) 0.5 Mg Tab 2 Mg PO BID Olanzapine 7.5 Mg Tab 7.5 Mg PO HS Atenolol 25 Mg Tab 25 Mg PO DAILY Aspirin 81 Mg Chew 81 Mg PO DAILY Review of Systems Except as stated in HPI: all other systems reviewed are Neg Physical Exam Narrative GENERAL:Well appearing, no acute distress SKIN: Focused skin assessment warm and dry. HEAD: Atraumatic. Normocephalic. EYES: Pupils equal and round. No injection or drainage. ENT: Moist mucous membranes NECK: Trachea midline. CARDIOVASCULAR: Regular rate and rhythm. No murmur appreciated. RESPIRATORY: Clear to auscultation. Breath sounds equal bilaterally. GASTROINTESTINAL: Abdomen soft, non-tender, nondistended. MUSCULOSKELETAL: No obvious deformities. NEUROLOGICAL: Awake and alert. No obvious cranial nerve deficits. Moving all extremities. PSYCHIATRIC: Appropriate mood and affect; insight and judgment normal. Data Data Last Documented VS Vital Signs Date Time Temp Pulse Resp B/P (MAP) Pulse Ox O2 Delivery O2 Flow Rate FiO2 12/08/17 12:00 86 16 170/78 (108) 97 Room Air 12/08/17 10:20 98.1 Orders Orders Complete Blood Count With Diff (12/08/17 10:23) Comprehensive Metabolic Panel (12/08/17 10:23) Blood Glucose (12/08/17 10:23) Ecg Monitoring (12/08/17 10:23) Iv Access Insert/Monitor (12/08/17 10:23) Oximetry (12/08/17 10:23) Sodium Chloride 0.9% Flush (Ns Flush) (12/08/17 10:30) Drug Screen, Random Urine (12/08/17 10:23) Alcohol (Ethanol) (12/08/17 10:23) Haloperidol Inj (Haldol Inj) (12/08/17 10:30) Lorazepam Inj (Ativan Inj) (12/08/17 11:30) Psych Screen (12/08/17 11:46) Diet Regular Basic (12/08/17 Lunch) Admit Order (Ed Use Only) (12/08/17 ) Labs Laboratory Tests Test 12/08/17 10:30 12/08/17 11:54 White Blood Count 6.6 TH/MM3 Red Blood Count 4.46 MIL/MM3 Hemoglobin 14.8 GM/DL Hematocrit 43.9 % Mean Corpuscular Volume 98.4 FL Mean Corpuscular Hemoglobin 33.2 PG Mean Corpuscular Hemoglobin Concent 33.8 % Red Cell Distribution Width 14.0 % Platelet Count 262 TH/MM3 Mean Platelet Volume 8.0 FL Neutrophils (%) (Auto) 60.0 % Lymphocytes (%) (Auto) 24.4 % Monocytes (%) (Auto) 11.5 % Eosinophils (%) (Auto) 3.6 % Basophils (%) (Auto) 0.5 % Neutrophils # (Auto) 4.0 TH/MM3 Lymphocytes # (Auto) 1.6 TH/MM3 Monocytes # (Auto) 0.8 TH/MM3 Eosinophils # (Auto) 0.2 TH/MM3 Basophils # (Auto) 0.0 TH/MM3 CBC Comment DIFF FINAL Differential Comment Blood Urea Nitrogen 10 MG/DL Creatinine 1.16 MG/DL Random Glucose 102 MG/DL Total Protein 6.8 GM/DL Albumin 3.6 GM/DL Calcium Level 8.6 MG/DL Alkaline Phosphatase 62 U/L Aspartate Amino Transf (AST/SGOT) 19 U/L Alanine Aminotransferase (ALT/SGPT) 26 U/L Total Bilirubin 0.8 MG/DL Sodium Level 140 MEQ/L Potassium Level 4.0 MEQ/L Chloride Level 103 MEQ/L Carbon Dioxide Level 28.5 MEQ/L Anion Gap 9 MEQ/L Estimat Glomerular Filtration Rate 63 ML/MIN Ethyl Alcohol Level LESS THAN 3 MG/DL Urine Opiates Screen NEG Urine Barbiturates Screen NEG Urine Amphetamines Screen NEG Urine Benzodiazepines Screen NEG Urine Cocaine Screen NEG Urine Cannabinoids Screen NEG MDM Medical Decision Making Medical Screen Exam Complete: Yes Emergency Medical Condition: Yes Medical Record Reviewed: Yes (Patient was seen by psychiatry earlier this week with similar behaviors. It was attributed at that time to alcohol intoxication however his alcohol was negative.) Interpretation(s) Labs are reassuring with a normal alcohol level Differential Diagnosis Alcohol intoxication, substance intoxication, psychosis, schizophrenia, adjustment reaction Narrative Course This is a 62-year-old male who presents to the emergency department with bizarre behavior. He was found running naked and says he is hearing voices telling him to hurt people. He threw an IV bag at one of the nurses in the emergency department. He was given 5 mg of IV Haldol and 1 mg of IV Ativan. He has no evident medical complaints and will be cleared for evaluation by psychiatry. Candace Meeks MD December 08, 2017 11:13
[2017-12-08 11:14] LABS: ALKALINE PHOSPHATASE 62 U/L (45-117); ALT (GPT) 26 U/L (12-78); TOTAL BILIRUBIN ADULT 0.8 MG/DL (0.2-1.0); TOTAL PROTEIN 6.8 GM/DL (6.4-8.2)
[2017-12-08] MEDS ORDERED: LORazepam 2 MG/ML VIAL IV PUSH ONE (11:30)
[2017-12-08 12:00] VITALS: BP 170/78; PULSE 86; RESP 16; O2SAT 97
[2017-12-08] MEDS ORDERED: LORazepam 2 MG TAB PO PRN (15:15)
[2017-12-08] MEDS ORDERED: cloNIDine HCL 0.1 MG TAB PO PRN (15:15)
[2017-12-08] MEDS ORDERED: ACETAMINOPHEN 325 MG TAB PO PRN (15:15)
[2017-12-08] MEDS ORDERED: hydrOXYzine HCL 50 MG TAB PO PRN (15:15)
[2017-12-08] MEDS ORDERED: LORazepam 2 MG/ML VIAL IV PUSH PRN ×4 (15:15)
[2017-12-08] MEDS ORDERED: LORazepam 1 MG TAB PO PRN (15:15)
[2017-12-08] MEDS ORDERED: BENZTROPINE MESYLATE 1 MG TAB PO PRN (15:15)
[2017-12-08] MEDS ORDERED: ALUMINUM/MAGNESIUM/SIMETH 30 ML CUP PO PRN (15:15)
[2017-12-08] MEDS ORDERED: diphenhydrAMINE HCL 50 MG CAP PO PRN (15:15)
[2017-12-08] MEDS ORDERED: FLUMAZENIL 0.5 MG/5 ML VIAL IV PUSH PRN (15:15)
[2017-12-08] MEDS ORDERED: BENZTROPINE MESYLATE 2 MG/2 ML VIAL IM PRN (15:15)
[2017-12-08] MEDS ORDERED: MAGNESIUM HYDROXIDE SUSP 30 ML CUP PO PRN (15:15)
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
[2017-12-08] MEDS ORDERED: HALOPERIDOL DECANOATE 50 MG/ML VIAL IM ONE (16:00)
[2017-12-08] MEDS ORDERED: PILL SPLITTER OTHER PRN (16:00)
[2017-12-08 17:45] VITALS: BP 188/77; PULSE 59; RESP 18; TEMP 97.9; O2SAT 99
[2017-12-08 18:35] VITALS: BP 135/78; PULSE 68; RESP 18; TEMP 97.2; O2SAT 98
[2017-12-08] MEDS: OLANZapine 5 MG TAB PO SCH (21:00)
[2017-12-08] MEDS: BENZTROPINE MESYLATE 1 MG TAB PO SCH (21:52)
[2017-12-08] MEDS: HALOPERIDOL 5 MG TAB PO SCH (21:52)
[2017-12-09 06:37] VITALS: BP 116/78; PULSE 56; RESP 16; TEMP 98.1; O2SAT 95
[2017-12-09] MEDS: REMOVE OLD NICOTINE PATCH T-DERMAL SCH (09:00)
[2017-12-09] MEDS: ASPIRIN 81 MG CHEW TAB PO SCH (09:13)
[2017-12-09] MEDS: ATENOLOL 25 MG TAB PO SCH (09:13)
[2017-12-09] MEDS: FOLIC ACID 1 MG TAB PO SCH (09:13)
[2017-12-09] MEDS: THIAMINE HCL 100 MG TAB PO SCH (09:13)
[2017-12-09] MEDS: BENZTROPINE MESYLATE 1 MG TAB PO SCH ×2 (09:13→21:53)
[2017-12-09] MEDS: MULTIVITAMINS/MINERALS THERAPEUTIC TAB PO SCH (09:14)
[2017-12-09] MEDS: HALOPERIDOL 5 MG TAB PO SCH ×2 (09:14→21:53)
--- NOTE | 2017-12-09 10:57 | PD.CONS ---
[facility] Phys[facility] Unknown Diagnoses: History of Present Illness Mr. Jacobo is a 62 year old male. He has been admitted due to an acute psychotic episode. He is more oriented and improved when seen today, however last night he was running around the streets naked. Patient does not have good recollection what happened last night. At baseline he has hypertension and this was exacerbated last night but is presently under control. No acute concerns for his blood pressure readings at this time. Review of Systems Constitutional: DENIES: Fatigue, Fever, Chills Eyes: DENIES: Blurred vision, Diplopia, Eye inflammation, Eye pain Respiratory: DENIES: Cough, Wheezing, Shortness of breath Cardiovascular: DENIES: Chest pain, Palpitations, Syncope Gastrointestinal: DENIES: Abdominal pain, Black stools, Bloody stools Musculoskeletal: DENIES: Joint pain, Muscle aches, Stiffness Integumentary: DENIES: Abnormal pigmentation, Nail changes, Pruritus, Rash Hematologic/lymphatic: DENIES: Bruising, Lymphadenopathy Immunologic/allergic: DENIES: Eczema, Urticaria Neurologic: DENIES: Abnormal gait, Headache, Paresthesias Psychiatric: DENIES: Anxiety, Confusion, Suicidal Ideation Except as stated in HPI: all other systems reviewed are Neg Past Family Social History Allergies: Coded Allergies: No Known Allergies (Verified Allergy, Unknown, 12/08/17) Past Medical History Past Surgical History Bipolar disorder Hypertension Alcoholism Reported Medications Umbilical hernia repair Vasectomy Active Ordered Medications Reported Meds & Active Scripts Active Reported Benztropine (Benztropine Mesylate) 0.5 Mg Tab 2 Mg PO BID Olanzapine 7.5 Mg Tab 7.5 Mg PO HS Atenolol 25 Mg Tab 25 Mg PO DAILY Aspirin 81 Mg Chew 81 Mg PO DAILY Family History Patient reports bipolar disorder and several relatives including his mother COPD and patient's mother Social History Patient drinks heavily Patient smokes 1 pack per day No illicit drug abuse Physical Exam Vital Signs Vital Signs Date Time Temp Pulse Resp B/P (MAP) Pulse Ox O2 Delivery O2 Flow Rate FiO2 12/09/17 06:37 98.1 56 16 116/78 (91) 95 12/08/17 18:35 97.2 68 18 135/78 (97) 98 12/08/17 17:45 97.9 59 18 188/77 (114) 99 12/08/17 17:44 12/08/17 12:00 86 16 170/78 (108) 97 Room Air Physical Exam GENERAL: NAD, A&Ox3 HEAD: Normocephalic. NECK: Supple, trachea midline. No lymphadenopathy. EYES: No scleral icterus. No injection or drainage. CARDIOVASCULAR: Regular rate and rhythm without murmurs, gallops, or rubs. RESPIRATORY: Breath sounds equal bilaterally. No accessory muscle use. GASTROINTESTINAL: Abdomen soft, non-tender, nondistended. MUSCULOSKELETAL: No cyanosis, or edema. SKIN: Warm and dry. NEURO: No focal neurological deficitis. Laboratory Laboratory Tests Test 12/08/17 11:54 Urine Opiates Screen NEG Urine Barbiturates Screen NEG Urine Amphetamines Screen NEG Urine Benzodiazepines Screen NEG Urine Cocaine Screen NEG Urine Cannabinoids Screen NEG Result Diagram: 12/08/17 1030 12/08/17 1030 Assessment and Plan Problem List: (1) Unspecified psychosis ICD Code: F29 - Unspecified psychosis not due to a substance or known physiological condition (2) Bipolar disorder ICD Code: F31.9 - Bipolar disorder, unspecified Status: Acute (3) Alcohol abuse ICD Code: F10.10 - Alcohol abuse, uncomplicated Status: Acute Assessment and Plan 62-year-old male admitted secondary to acute psychosis Acute psychotic episode Appears to be improved today may be related to his bipolar disorder May be related to alcohol abuse Psychiatry following Hypertension Continue baseline treatment Continue atenolol Follow blood pressures Adjust treatments as needed Alcoholism Monitor for any withdrawal CIWA Protocall Thiamine Folic acid Multivitamin Nicotine dependence NicoDerm DVT Prophylaxis Patient is ambulatory Problem Qualifiers (1) Bipolar disorder: Qualified Codes: F31.32 - Bipolar disorder, current episode depressed, moderate Junior Chapman MD December 09, 2017 10:57
[2017-12-09 11:34] LABS: BICARBONATE 31.7 MEQ/L (21.0-32.0); BLOOD UREA NITROGEN 15 MG/DL (7-18); CHLORIDE 105 MEQ/L (98-107); CREATININE 1.12 MG/DL (0.60-1.30); GLOMERULAR FILTRATION RATE 66 ML/MIN (>89); GLUCOSE,RANDOM 97 MG/DL (74-106); SODIUM (NA) 142 MEQ/L (136-145)
[2017-12-09 11:35] LABS: CHOLESTEROL 155 MG/DL (120-200)
[2017-12-09 11:38] LABS: CHOLESTEROL/ HDL RATIO 3.04 RATIO; HDL CHOLESTEROL 50.9 MG/DL (40.0-60.0); LDL CHOLESTEROL 80 MG/DL (0-99); TRIGLYCERIDES 123 MG/DL (42-150)
[2017-12-09] MEDS: NICOTINE 21 MG/24 HR PATCH T-DERMAL PRN (14:40)
--- NOTE | 2017-12-09 14:42 | HHI.PYPN ---
Subjective Chief Complaint: Command auditory hallucinations Remarks Patient initially seen and admitted by Dr. Qamar Noble. His psychiatric H& P reviewed and agreed with. I have completed the initial inpatient template admitting orders, and reviewed the med reconciliation. Patient is seen in the day room with floor staff, he is alert oriented, cooperative with me states she is a client with stroke [facility] and does see a nurse practitioner there. He states he was having increased auditory hallucinations prior to coming in. But he did receive a Haldol Decanoate injection yesterday says the voices are somewhat better today. He does deny suicidality at this time. Though the voices do persist. For now continue treatment Review of Systems Except as stated in HPI: all other systems reviewed are Neg Mental Status Examination Appearance: Appropriate Consciousness: Alert Orientation: x4 Motor Activity: Normal gait Speech: Unremarkable Language: Adequate Fund of Knowledge: Adequate Attention and Concentration: Adequate Memory: Unremarkable (Grossly intact on clinical exam) Mood: Other (Depressed) Affect: Appropriate Thought Process & Associations: Intact, Logical, Linear Thought Content: Hallucinations Hallucination Type: Auditory (Command auditory hallucinations as detailed above ) Delusion Type: None Suicidal Ideation: No Suicidal Plan: No Suicidal Intention: No Homicidal Ideation: No Homicidal Plan: No Homicidal Intention: No Insight: Adequate Judgment: Adequate Results Labs Test 12/09/17 10:30 Blood Urea Nitrogen 15 MG/DL Creatinine 1.12 MG/DL Random Glucose 97 MG/DL Calcium Level 9.0 MG/DL Sodium Level 142 MEQ/L Potassium Level 4.1 MEQ/L Chloride Level 105 MEQ/L Carbon Dioxide Level 31.7 MEQ/L Anion Gap 5 MEQ/L Estimat Glomerular Filtration Rate 66 ML/MIN Triglycerides Level 123 MG/DL Cholesterol Level 155 MG/DL LDL Cholesterol 80 MG/DL HDL Cholesterol 50.9 MG/DL Cholesterol/HDL Ratio 3.04 RATIO Vitals/IOs Vital Signs Date Time Temp Pulse Resp B/P (MAP) Pulse Ox O2 Delivery O2 Flow Rate FiO2 12/09/17 06:37 98.1 56 16 116/78 (91) 95 12/08/17 12:00 Room Air Intake and Output 12/09/17 12/09/17 12/09/17 07:59 15:59 23:59 Intake Total 360 ml Balance 360 ml Assessment & Plan Problem List: (1) Unspecified psychosis ICD Codes: F29 - Unspecified psychosis not due to a substance or known physiological condition (2) Bipolar disorder ICD Codes: F31.9 - Bipolar disorder, unspecified Status: Acute (3) Alcohol abuse ICD Codes: F10.10 - Alcohol abuse, uncomplicated Status: Acute (4) Schizoaffective disorder, bipolar type ICD Codes: F25.0 - Schizoaffective disorder, bipolar type Assessment & Plan Estimated LOS: days patient continues psychotic and mildly paranoid but overall calm and cooperative, is compliant with medications. For now continue treatment patient as well as consistent with his behaviors over the weekend consider discharge first part of next week Justification for Cont. Inpt. At this time patient would decompensate if place to the lower level of care Discharge Planning Return to his prior living situation in a hotel Request HC Surrog/Guard Advoc?: No Problem Qualifiers (1) Bipolar disorder: Qualified Codes: F31.32 - Bipolar disorder, current episode depressed, moderate Colton Mercado MD December 09, 2017 14:42
[2017-12-09] MEDS ORDERED: diphenhydrAMINE HCL 50 MG CAP PO PRN (14:45)
[2017-12-09 15:20] LABS: HEMOGLOBIN A1C 4.8 % (4.3-6.0)
[2017-12-09 18:00] VITALS: BP 138/74; PULSE 71; RESP 16; TEMP 98.1; O2SAT 98
[2017-12-09] MEDS: OLANZapine 5 MG TAB PO SCH (21:53)
[2017-12-10 06:38] VITALS: BP 135/71; PULSE 58; RESP 18; TEMP 97.9; O2SAT 100
[2017-12-10] MEDS: REMOVE OLD NICOTINE PATCH T-DERMAL SCH (09:00)
[2017-12-10] MEDS: FOLIC ACID 1 MG TAB PO SCH (10:00)
[2017-12-10] MEDS: MULTIVITAMINS/MINERALS THERAPEUTIC TAB PO SCH (10:00)
[2017-12-10] MEDS: ATENOLOL 25 MG TAB PO SCH (10:00)
[2017-12-10] MEDS: ASPIRIN 81 MG CHEW TAB PO SCH (10:00)
[2017-12-10] MEDS: HALOPERIDOL 5 MG TAB PO SCH ×2 (10:00→21:17)
[2017-12-10] MEDS: BENZTROPINE MESYLATE 1 MG TAB PO SCH ×2 (10:00→21:15)
[2017-12-10] MEDS: THIAMINE HCL 100 MG TAB PO SCH (10:01)
[2017-12-10] MEDS: NICOTINE 21 MG/24 HR PATCH T-DERMAL PRN (10:01)
--- NOTE | 2017-12-10 14:59 | HHI.PYPN ---
Subjective Chief Complaint: Command auditory hallucinations Remarks Chart reviewed and discussed with nursing staff. Patient is in the common room talking with other patients. He states that he received his Haldol Dec injection at [facility] on 12/08/17. He states that he has a male voice that repeats the same statement over and over, stating " take your clothes off. " He endorses that he does drink too much. He is under CIWA, acknowledges no tremors. He states his mood is good. He is sleeping and eating well. Mental Status Examination Appearance: Appropriate Consciousness: Alert Orientation: x4 Motor Activity: Normal gait Speech: Unremarkable Language: Adequate Fund of Knowledge: Adequate Attention and Concentration: Adequate Memory: Unremarkable (Grossly intact on clinical exam) Mood: Other (Depressed) Affect: Appropriate Thought Process & Associations: Intact, Logical, Linear Thought Content: Hallucinations Hallucination Type: Auditory (Command auditory hallucinations as detailed above ) Delusion Type: None Suicidal Ideation: No Suicidal Plan: No Suicidal Intention: No Homicidal Ideation: No Homicidal Plan: No Homicidal Intention: No Insight: Adequate Judgment: Adequate Results Vitals/IOs Vital Signs Date Time Temp Pulse Resp B/P (MAP) Pulse Ox O2 Delivery O2 Flow Rate FiO2 12/10/17 06:38 97.9 58 18 135/71 (92) 100 12/08/17 12:00 Room Air Intake and Output 12/10/17 12/10/17 12/11/17 08:00 16:00 00:00 Intake Total 480 ml Balance 480 ml Assessment & Plan Problem List: (1) Unspecified psychosis ICD Codes: F29 - Unspecified psychosis not due to a substance or known physiological condition (2) Bipolar disorder ICD Codes: F31.9 - Bipolar disorder, unspecified Status: Acute (3) Alcohol abuse ICD Codes: F10.10 - Alcohol abuse, uncomplicated Status: Acute Assessment & Plan: Patient is calm and sitting in common area talking with other patients. He endorses auditory hallucinations. Received his Haldol Dec at [facility] per patient. Eating and sleeping well. Discharge planning continuous. (4) Schizoaffective disorder, bipolar type ICD Codes: F25.0 - Schizoaffective disorder, bipolar type Assessment & Plan Estimated LOS: days Justification for Cont. Inpt. Moving patient to a lower level of care may result in the patient's decompensation. Request HC Surrog/Guard Advoc?: No Problem Qualifiers (1) Bipolar disorder: Qualified Codes: F31.32 - Bipolar disorder, current episode depressed, moderate Loly Mobley December 10, 2017 14:59
--- NOTE | 2017-12-10 15:29 | EKG ---
Date Performed: 12/09/2017 Time Performed: 12:58:46 PTAGE: 62 years EKG: Sinus rhythm WITH BORDERLINE SHORT HI INTERVAL OTHERWISE WITHIN NORMAL LIMITS NORMAL ECG Compared to PREVIOUS TRACING , prior tracing showed first degree AV block. This HI interval is consid erably shorter but still within the normal range. PREVIOUS TRACIN08/29/2017 14.17 DOCTOR: Suraj Minor Interpretating Date/Time 12/10/2017 15:29:18
[2017-12-10 18:00] VITALS: BP 126/85; PULSE 56; RESP 17; TEMP 97.9; O2SAT 98
[2017-12-10] MEDS: OLANZapine 5 MG TAB PO SCH (21:17)
[2017-12-11 05:21] VITALS: BP 130/75; PULSE 64; RESP 18; TEMP 98.1; O2SAT 98
[2017-12-11] MEDS: FOLIC ACID 1 MG TAB PO SCH (09:00)
[2017-12-11] MEDS: REMOVE OLD NICOTINE PATCH T-DERMAL SCH (09:00)
--- NOTE | 2017-12-11 09:46 | HHI.PR ---
Subjective Remarks Pt denies any complains, any nausea or vomiting or any pain. discussed w RN, no concerns at this time. Objective Vitals Vital Signs Date Time Temp Pulse Resp B/P (MAP) Pulse Ox O2 Delivery O2 Flow Rate FiO2 12/11/17 05:21 98.1 64 18 130/75 (93) 98 12/10/17 18:00 97.9 56 17 126/85 (99) 98 I/O 12/10/17 12/10/17 12/10/17 12/11/17 12/11/17 12/11/17 07:00 15:00 23:00 07:00 15:00 23:00 Intake Total 480 ml Balance 480 ml Intake Oral 480 ml Result Diagram: 12/08/17 1030 12/09/17 1030 Objective Remarks ambulating w no difficulty in the common room smiling and calm HR rrr w no murmurs lungs are clear A/P Problem List: (1) Unspecified psychosis ICD Code: F29 - Unspecified psychosis not due to a substance or known physiological condition (2) Bipolar disorder ICD Code: F31.9 - Bipolar disorder, unspecified Status: Acute (3) Alcohol abuse ICD Code: F10.10 - Alcohol abuse, uncomplicated Status: Acute Assessment and Plan 62-year-old male admitted secondary to acute psychosis Acute psychotic episode Appears to be improving may be related to his bipolar disorder May be related to alcohol abuse Psychiatry following Hypertension Continue baseline treatment Continue atenolol BPs have been stable Adjust treatments as needed Alcoholism no signs of withdrawal. Hasn't required any ativan per CIWA protocol Thiamine/folic acid/ MV Nicotine dependence NicoDerm DVT Prophylaxis Patient is ambulatory clinically pt is doing well. Medical team will sign off, please reconsult as needed. Discharge Planning per psychiatry team Problem Qualifiers (1) Bipolar disorder: Qualified Codes: F31.32 - Bipolar disorder, current episode depressed, moderate Elizabeth Nick MD December 11, 2017 09:46
[2017-12-11] MEDS: BENZTROPINE MESYLATE 1 MG TAB PO SCH ×2 (09:49→21:15)
[2017-12-11] MEDS: HALOPERIDOL 5 MG TAB PO SCH ×2 (09:49→21:15)
[2017-12-11] MEDS: ATENOLOL 25 MG TAB PO SCH (09:49)
[2017-12-11] MEDS: MULTIVITAMINS/MINERALS THERAPEUTIC TAB PO SCH (09:49)
[2017-12-11] MEDS: THIAMINE HCL 100 MG TAB PO SCH (09:49)
[2017-12-11] MEDS: ASPIRIN 81 MG CHEW TAB PO SCH (09:49)
--- NOTE | 2017-12-11 14:53 | HHI.PYPN ---
Subjective Chief Complaint: Command auditory hallucinations Remarks Patient seen and examined with nurse in weekend coverage. Chart reviewed. Case discussed with nursing staff. No behavioral issues noted. On my examination today, the patient denies any ongoing auditory hallucinations. In particular he denies any command auditory hallucinations. He feels very much improved with titration of Haldol decanoate. He denies any suicidal or homicidal ideation. Denies any side effects from medications. No physical complaints. Hopeful for discharge soon. Review of Systems Except as stated in HPI: all other systems reviewed are Neg Mental Status Examination Appearance: Appropriate Consciousness: Alert Orientation: x4 Motor Activity: Normal gait, Other (No motor abnormalities noted) Speech: Unremarkable Language: Adequate Fund of Knowledge: Adequate Attention and Concentration: Adequate Memory: Unremarkable (Grossly intact on clinical exam) Mood: Appropriate, Manic Affect: Appropriate Thought Process & Associations: Intact, Logical, Goal directed, Linear Thought Content: Hallucinations Hallucination Type: None Delusion Type: None Suicidal Ideation: No Suicidal Plan: No Suicidal Intention: No Homicidal Ideation: No Homicidal Plan: No Homicidal Intention: No Insight: Adequate Judgment: Adequate Results Labs Labs reviewed Vitals/IOs Vital Signs Date Time Temp Pulse Resp B/P (MAP) Pulse Ox O2 Delivery O2 Flow Rate FiO2 12/11/17 05:21 98.1 64 18 130/75 (93) 98 12/08/17 12:00 Room Air Assessment & Plan Problem List: (1) Schizoaffective disorder, bipolar type ICD Codes: F25.0 - Schizoaffective disorder, bipolar type (2) Alcohol abuse ICD Codes: F10.10 - Alcohol abuse, uncomplicated Status: Acute Assessment & Plan Continue current psychotropic medications as ordered. CIWA scores have all been minimal; discontinue CIWA. Continue to monitor on inpatient unit. Continue other medications and care as ordered. Justification for Cont. Inpt. Risk for decompensation Discharge Planning As ordered by primary psychiatrist Request HC Surrog/Guard Advoc?: No Qamar Noble MD December 11, 2017 14:53
[2017-12-11 19:01] VITALS: BP 131/75; PULSE 60; RESP 18; TEMP 98.2; O2SAT 97
[2017-12-11] MEDS: OLANZapine 5 MG TAB PO SCH (21:15)
[2017-12-12 07:08] VITALS: BP 127/75; PULSE 62; RESP 18; TEMP 97.7; O2SAT 97
[2017-12-12] MEDS: ATENOLOL 25 MG TAB PO SCH (09:00)
[2017-12-12] MEDS: REMOVE OLD NICOTINE PATCH T-DERMAL SCH (09:00)
[2017-12-12] MEDS: HALOPERIDOL 5 MG TAB PO SCH (09:13)
[2017-12-12] MEDS: BENZTROPINE MESYLATE 1 MG TAB PO SCH (09:13)
[2017-12-12] MEDS: ASPIRIN 81 MG CHEW TAB PO SCH (09:13)
[2017-12-12] MEDS ORDERED: OLAN7.5T PO (13:48)
[2017-12-12] MEDS ORDERED: HALO5TAB PO (13:48)
[2017-12-12] MEDS ORDERED: ASPI-516 PO (13:48)
[2017-12-12] MEDS ORDERED: Benztropine PO (13:48)
[2017-12-12] MEDS ORDERED: ATEN25TA PO (13:48)
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
== END 2017-12-12 16:10 | disposition home or self-care (01) | DRG 885 ==
LOC: NEPC 10:11 → NEDA 15:05 → H260 17:38
PROVIDERS: ADMIT Psychiatry & Neurology Psychiatry; ATTEND Psychiatry & Neurology Psychiatry
DX: F25.0 Schizoaffective disorder, bipolar type (principal); F29 Unspecified psychosis not due to a substance or known physiological condition; I10 Essential (primary) hypertension; R63.0 Anorexia; F17.210 Nicotine dependence, cigarettes, uncomplicated; F10.20 Alcohol dependence, uncomplicated; Z82.5 Family history of asthma and other chronic lower respiratory diseases; Z91.5 Personal history of self-harm; Z79.899 Other long term (current) drug therapy
CPT/HCPCS: 80048; 80053; 80061; 80307; 83036; 85025; 93005; 96374; 96375; J1630; J1631; J2060; Q0163

== ENCOUNTER 2017-12-18 11:19 | Emergency (ER) | payer MEDICARE, OTHER ==
[~2017-12-18] VITALS: Ht 177.8 cm; Wt 120.0 kg
[~2017-12-18 11:19] MED LIST changes: -BENZ0.5T PO; +Benztropine PO; -CLON0.5T PO; -HALO100P IM; +HALO5TAB PO
[2017-12-18 11:25] VITALS: BP 86/53; PULSE 68; RESP 12; TEMP 99.1; O2SAT 96
[2017-12-18] MEDS ORDERED: CLON0.5T PO (11:41)
[2017-12-18 11:45] VITALS: BP 98/54; PULSE 69; RESP 15; O2SAT 96
[2017-12-18] MEDS ORDERED: SODIUM CHLOR 0.9% 1000 ML INJ 1,000 ML IV ONE (11:45)
--- NOTE | 2017-12-18 12:03 | PD ---
HPI Chief Complaint: Altered Mental Status Time Seen by Provider: 11:34 Travel History International Travel<30 days: No Contact w/Intl Traveler<30days: No Traveled to known affect area: No History of Present Illness HPI pt is a 62 y.o male who presents to the ED with daughter. History is obtained from daughter bc of somnolence. Per daughter, pt has numbers of psychiatric disorders and is currently suicidal. Yesterday he expressed suicidal thoughts without a specific plan to daughter. She is concerned that he might have OD'd on his Clonazepam. The patient's history is somewhat limited by his somnolence , after period of observation in the emergency department he tells me that he strips naked and walks the streets because the voices in his head tell him to do so. He states he has a history of bipolar disorder. His daughter was very concerned that if he continues his behavior he is been told by police that he will be arrested and placed in shelter. His daughter is concerned for her father' s well-being and does not want him to go to shelter. No chest pain or shortness of breath no abdominal pain nausea vomiting diarrhea constipation. He does endorse drinking today peer PFS Past Medical History Autoimmune Disease: No Bipolar Disorder: Yes Anxiety: Yes Depression: Yes Cancer: No (Per pt) Cardiovascular Problems: Yes (Hypertension) Chemotherapy: No Diabetes: No (Per pt) Diminished Hearing: No Endocrine: No Genitourinary: No Headaches: No (Per pt) Hypertension: Yes Immune Disorder: No Musculoskeletal: No Neurologic: No Psychiatric: Yes (Bipolar) Reproductive: No Respiratory: No Radiation Therapy: No Seizures: No (Per pt) Thyroid Disease: No Past Surgical History Abdominal Surgery: Yes (UMBILICAL HERNIA ) AICD: No Arteriovenous Shunt: No Insulin Pump: No Joint Replacement: No Pacemaker: No Other Surgery: Yes (VASECTOMY ) Social History Alcohol Use: Yes (possible heavy use, states trying to wean himself off) Tobacco Use: Yes (A PACK A DAY ) Allergies-Medications (Allergen,Severity, Reaction): Coded Allergies: No Known Allergies (Verified Allergy, Unknown, 12/18/17) Reported Meds & Prescriptions Reported Meds & Active Scripts Active Haloperidol 5 Mg Tab 5 Mg PO BID [Benztropine] 1 MG Tab 2 Mg PO BID Olanzapine 7.5 Mg Tab 7.5 Mg PO HS Atenolol 25 Mg Tab 25 Mg PO DAILY Aspirin 81 Mg Chew 81 Mg PO DAILY Reported Clonazepam 0.5 Mg Tab 0.5 Mg PO BID Review of Systems Except as stated in HPI: all other systems reviewed are Neg Physical Exam Narrative GENERAL: Alert and oriented to person and place. Somnolent. Alcohol breath SKIN: Warm and dry. HEAD: Atraumatic. Normocephalic. EYES: Pupils equal and round. No scleral icterus. No injection or drainage. ENT: No nasal bleeding or discharge. Mucous membranes pink and moist. NECK: Trachea midline. No JVD. CARDIOVASCULAR: Regular rate and rhythm. RESPIRATORY: No accessory muscle use. Clear to auscultation. Breath sounds equal bilaterally. GASTROINTESTINAL: Abdomen soft, non-tender, nondistended. Hepatic and splenic margins not palpable. MUSCULOSKELETAL: Extremities without clubbing, cyanosis, or edema. No obvious deformities. NEUROLOGICAL: Awake and alert. No obvious cranial nerve deficits. Motor grossly within normal limits. Five out of 5 muscle strength in the arms and legs. Normal speech. PSYCHIATRIC: pt seems somnolent but alert and oriented X1. Later after a period of sobriety in the emergency department, he is alert and awake and oriented, endorses audio hallucinations. Denies any suicidal homicidal ideation. Data Data Last Documented VS Vital Signs Date Time Temp Pulse Resp B/P (MAP) Pulse Ox O2 Delivery O2 Flow Rate FiO2 12/18/17 18:35 71 18 133/75 (94) 97 Room Air 12/18/17 14:23 2.00 12/18/17 11:25 99.1 Orders Orders Complete Blood Count With Diff (12/18/17 11:34) Comprehensive Metabolic Panel (12/18/17 11:34) Thyroid Stimulating Hormone (12/18/17 11:34) Psych Screen (12/18/17 11:34) Drug Screen, Random Urine (12/18/17 11:34) Ammonia (12/18/17 11:34) Sodium Chlor 0.9% 1000 Ml Inj (Ns 1000 M (12/18/17 11:45) Salicylates (Aspirin) (12/18/17 12:02) Thiamine Inj (Thiamine Inj) (12/18/17 12:15) Alcohol (Ethanol) (12/18/17 11:42) Tylenol (Acetaminophen) (12/18/17 11:42) Electrocardiogram (12/18/17 11:43) Ct Brain W/O Iv Contrast(Rout) (12/18/17 ) Alcohol Withdrawal Asmt-Ciwa Q4HX18 (12/18/17 16:15) Lorazepam (Ativan) (12/18/17 16:15) Lorazepam Inj (Ativan Inj) (12/18/17 16:15) Lorazepam (Ativan) (12/18/17 16:15) Lorazepam Inj (Ativan Inj) (12/18/17 16:15) Lorazepam Inj (Ativan Inj) (12/18/17 16:15) Lorazepam Inj (Ativan Inj) (12/18/17 16:15) Diet Regular Basic (12/18/17 Dinner) Labs Laboratory Tests Test 12/18/17 11:42 12/18/17 11:50 12/18/17 12:10 White Blood Count 11.6 TH/MM3 Red Blood Count 4.31 MIL/MM3 Hemoglobin 14.7 GM/DL Hematocrit 41.7 % Mean Corpuscular Volume 96.8 FL Mean Corpuscular Hemoglobin 34.1 PG Mean Corpuscular Hemoglobin Concent 35.2 % Red Cell Distribution Width 13.7 % Platelet Count 304 TH/MM3 Mean Platelet Volume 8.0 FL Neutrophils (%) (Auto) 64.7 % Lymphocytes (%) (Auto) 16.9 % Monocytes (%) (Auto) 10.7 % Eosinophils (%) (Auto) 7.2 % Basophils (%) (Auto) 0.5 % Neutrophils # (Auto) 7.5 TH/MM3 Lymphocytes # (Auto) 2.0 TH/MM3 Monocytes # (Auto) 1.2 TH/MM3 Eosinophils # (Auto) 0.8 TH/MM3 Basophils # (Auto) 0.1 TH/MM3 CBC Comment DIFF FINAL Differential Comment Blood Urea Nitrogen 9 MG/DL Creatinine 1.12 MG/DL Random Glucose 84 MG/DL Total Protein 6.7 GM/DL Albumin 3.4 GM/DL Calcium Level 8.4 MG/DL Alkaline Phosphatase 60 U/L Aspartate Amino Transf (AST/SGOT) 16 U/L Alanine Aminotransferase (ALT/SGPT) 22 U/L Total Bilirubin 0.5 MG/DL Sodium Level 141 MEQ/L Potassium Level 3.9 MEQ/L Chloride Level 107 MEQ/L Carbon Dioxide Level 21.8 MEQ/L Anion Gap 12 MEQ/L Estimat Glomerular Filtration Rate 66 ML/MIN Thyroid Stimulating Hormone 3rd Gen 0.786 uIU/ML Salicylates Level 4.4 MG/DL Acetaminophen Level LESS THAN 2.0 MCG/ML Ethyl Alcohol Level 184 MG/DL Ammonia 26 MCMOL/L Urine Opiates Screen NEG Urine Barbiturates Screen NEG Urine Amphetamines Screen NEG Urine Benzodiazepines Screen NEG Urine Cocaine Screen NEG Urine Cannabinoids Screen NEG MDM Medical Decision Making Medical Screen Exam Complete: Yes Emergency Medical Condition: Yes Differential Diagnosis alcohol intoxication; Benzodiazepine intoxication; Depression; Suicidal; Bipolar Narrative Course Patient room to the emergency department, appears to be under the influence of alcohol, I have done a pill count of the bottles that they brought with them and he is missing 17 clonazepam's. After period of observation in the emergency department he is reached clinical sobriety, still has quite an odd affect. Discussed that he should consider seeing a psychiatrist and he would like to do so on a voluntary basis. Patient was discussed with Coretta jacques RN, will be moved to Ty jacques on a voluntary status for now. He is medically stable for psychiatric evaluation. Diagnosis Primary Impression: Alcohol intoxication Additional Impressions: Alcohol abuse Schizoaffective disorder, bipolar type Condition: Stable Mahesh Hernandez MD Dec 18, 2017 12:03
[2017-12-18 12:07] LABS: AUTOMATED NEUTROPHIL # 7.5 TH/MM3 (1.8-7.7); BASOPHIL # 0.1 TH/MM3 (0-0.2); BASOPHIL % 0.5 % (0.0-2.0); EOSINOPHIL # 0.8 TH/MM3 (0-0.4); EOSINOPHIL % 7.2 % (0.0-4.0); HEMATOCRIT 41.7 % (39.0-51.0); HEMOGLOBIN 14.7 GM/DL (13.0-17.0); LYMPH % 16.9 % (9.0-44.0); MEAN CELL VOLUME 96.8 FL (80.0-100.0); MEAN CORPUSCULAR HEMOGLOBIN 34.1 PG (27.0-34.0); MEAN CORPUSCULAR HGB CONC 35.2 % (32.0-36.0); MONO % 10.7 % (0.0-8.0); MONOCYTE # 1.2 TH/MM3 (0-0.9); NEUT % 64.7 % (16.0-70.0); PLATELET COUNT 304 TH/MM3 (150-450); RED BLOOD COUNT 4.31 MIL/MM3 (4.50-5.90); RED CELL DISTRIBUTION WIDTH 13.7 % (11.6-17.2); WHITE BLOOD COUNT 11.6 TH/MM3 (4.0-11.0)
[2017-12-18] MEDS ORDERED: THIAMINE INJ 100 MG in SODIUM CHLORIDE 0.9% INJ 100 ML IV ONE (12:15)
[2017-12-18 12:23] LABS: ALBUMIN 3.4 GM/DL (3.4-5.0); ALT (GPT) 22 U/L (12-78); AST (GOT) 16 U/L (15-37); BICARBONATE 21.8 MEQ/L (21.0-32.0); BLOOD UREA NITROGEN 9 MG/DL (7-18); CALCIUM 8.4 MG/DL (8.5-10.1); CHLORIDE 107 MEQ/L (98-107); CREATININE 1.12 MG/DL (0.60-1.30); GLOMERULAR FILTRATION RATE 66 ML/MIN (>89); GLUCOSE,RANDOM 84 MG/DL (74-106); SODIUM (NA) 141 MEQ/L (136-145)
[2017-12-18 12:34] LABS: ALKALINE PHOSPHATASE 60 U/L (45-117); TOTAL BILIRUBIN ADULT 0.5 MG/DL (0.2-1.0); TOTAL PROTEIN 6.7 GM/DL (6.4-8.2)
[2017-12-18 12:57] LABS: ACETAMINOPHEN LESS THAN 2.0 MCG/ML (10.0-30.0)
--- NOTE | 2017-12-18 13:16 | RADRPT ---
EXAM DATE: 12/18/2017 1:13 PM EDT AGE/SEX: 62 years / Male INDICATIONS: Lethargic with suicidal thoughts. CLINICAL DATA: This is the patient's initial encounter. Patient reports that signs and symptoms have been present for 1 day and indicates a pain score of 0/10. MEDICAL/SURGICAL HISTORY: Cardiovascular disease. Hypertension. Diabetes. Seizures. None. RADIATION DOSE: 56.35 CTDI (mGy) [place] [facility] [place]. . TECHNIQUE: CT of the head without contrast. Using automated exposure control and adjustment of the mA and/or kV according to patient size, radiation dose was kept as low as reasonably achievable to ob tain optimal diagnostic quality images. FINDINGS: Cerebrum: The ventricles are normal for age. No evidence of midline shift, mass lesion, hemorrhage or acute infarction. No extraaxial fluid collections are seen. Posterior Fossa: The cerebellum and brainstem are intact. The 4th ventricle is midline. The cerebe llopontine angle is unremarkable. Extracranial: The visualized portion of the orbits is intact. Skull: The calvaria is intact. No evidence of skull fracture. CONCLUSION: 1. Negative CT Head non contrast. Electronically signed by: Maryse Bailey MD 12/18/2017 1:14 PM EDT
[2017-12-18 13:37] VITALS: PULSE 69; RESP 15
[2017-12-18 14:23] VITALS: BP 114/61; PULSE 67; RESP 15; O2SAT 97
[2017-12-18] MEDS ORDERED: LORazepam 2 MG TAB PO PRN (16:15)
[2017-12-18] MEDS ORDERED: LORazepam 2 MG/ML VIAL IV PUSH PRN ×4 (16:15)
[2017-12-18] MEDS ORDERED: LORazepam 1 MG TAB PO PRN (16:15)
--- NOTE | 2017-12-18 17:32 | EKG ---
Date Performed: 12/18/2017 Time Performed: 11:43:57 PTAGE: 62 years EKG: Sinus rhythm Since the previous tracing, no significant change noted. MO interval continues to be borderline shor t BORDERLINE ECG PREVIOUS TRACING : 12/09/2017 12.58 DOCTOR: Suraj Minor Interpretating Date/Time 12/18/2017 17:30:41
[2017-12-18 18:35] VITALS: BP 133/75; PULSE 71; RESP 18; O2SAT 97
[2017-12-19 00:19] VITALS: BP 141/87; PULSE 75; RESP 20; TEMP 99.4; O2SAT 95
[2017-12-19 06:42] VITALS: BP 128/81; PULSE 78; RESP 20; TEMP 99.1; O2SAT 94
--- NOTE | 2017-12-19 13:18 | PD ---
Physical Exam Date Seen by Provider: Dec 19, 2017 Narrative This patient was here yesterday for acute intoxication. His daughter was concerned about suicidal ideation and thought that he had perhaps overdosed on alcohol and a benzodiazepine. The patient is now sober and lucid. He denies homicidal or suicidal ideation. He denies any psychotic symptoms. His daughter is here and is willing to take him home. Data Data Last Documented VS Vital Signs Date Time Temp Pulse Resp B/P (MAP) Pulse Ox O2 Delivery O2 Flow Rate FiO2 12/19/17 06:42 99.1 78 20 128/81 (97) 94 Room Air 12/18/17 14:23 2.00 Orders Orders Complete Blood Count With Diff (12/18/17 11:34) Comprehensive Metabolic Panel (12/18/17 11:34) Thyroid Stimulating Hormone (12/18/17 11:34) Psych Screen (12/18/17 11:34) Drug Screen, Random Urine (12/18/17 11:34) Ammonia (12/18/17 11:34) Sodium Chlor 0.9% 1000 Ml Inj (Ns 1000 M (12/18/17 11:45) Salicylates (Aspirin) (12/18/17 12:02) Thiamine Inj (Thiamine Inj) (12/18/17 12:15) Alcohol (Ethanol) (12/18/17 11:42) Tylenol (Acetaminophen) (12/18/17 11:42) Electrocardiogram (12/18/17 11:43) Ct Brain W/O Iv Contrast(Rout) (12/18/17 ) Alcohol Withdrawal Asmt-Ciwa Q4HX18 (12/18/17 16:15) Lorazepam (Ativan) (12/18/17 16:15) Lorazepam Inj (Ativan Inj) (12/18/17 16:15) Lorazepam (Ativan) (12/18/17 16:15) Lorazepam Inj (Ativan Inj) (12/18/17 16:15) Lorazepam Inj (Ativan Inj) (12/18/17 16:15) Lorazepam Inj (Ativan Inj) (12/18/17 16:15) Diet Regular Basic (12/18/17 Dinner) Diet Regular Basic (12/19/17 Breakfast) Diet Regular Basic (12/19/17 Lunch) Ed Discharge Order (12/19/17 13:15) Labs Laboratory Tests Test 12/18/17 11:42 12/18/17 11:50 12/18/17 12:10 White Blood Count 11.6 TH/MM3 Red Blood Count 4.31 MIL/MM3 Hemoglobin 14.7 GM/DL Hematocrit 41.7 % Mean Corpuscular Volume 96.8 FL Mean Corpuscular Hemoglobin 34.1 PG Mean Corpuscular Hemoglobin Concent 35.2 % Red Cell Distribution Width 13.7 % Platelet Count 304 TH/MM3 Mean Platelet Volume 8.0 FL Neutrophils (%) (Auto) 64.7 % Lymphocytes (%) (Auto) 16.9 % Monocytes (%) (Auto) 10.7 % Eosinophils (%) (Auto) 7.2 % Basophils (%) (Auto) 0.5 % Neutrophils # (Auto) 7.5 TH/MM3 Lymphocytes # (Auto) 2.0 TH/MM3 Monocytes # (Auto) 1.2 TH/MM3 Eosinophils # (Auto) 0.8 TH/MM3 Basophils # (Auto) 0.1 TH/MM3 CBC Comment DIFF FINAL Differential Comment Blood Urea Nitrogen 9 MG/DL Creatinine 1.12 MG/DL Random Glucose 84 MG/DL Total Protein 6.7 GM/DL Albumin 3.4 GM/DL Calcium Level 8.4 MG/DL Alkaline Phosphatase 60 U/L Aspartate Amino Transf (AST/SGOT) 16 U/L Alanine Aminotransferase (ALT/SGPT) 22 U/L Total Bilirubin 0.5 MG/DL Sodium Level 141 MEQ/L Potassium Level 3.9 MEQ/L Chloride Level 107 MEQ/L Carbon Dioxide Level 21.8 MEQ/L Anion Gap 12 MEQ/L Estimat Glomerular Filtration Rate 66 ML/MIN Thyroid Stimulating Hormone 3rd Gen 0.786 uIU/ML Salicylates Level 4.4 MG/DL Acetaminophen Level LESS THAN 2.0 MCG/ML Ethyl Alcohol Level 184 MG/DL Ammonia 26 MCMOL/L Urine Opiates Screen NEG Urine Barbiturates Screen NEG Urine Amphetamines Screen NEG Urine Benzodiazepines Screen NEG Urine Cocaine Screen NEG Urine Cannabinoids Screen NEG MDM Supervised Visit with ILEANA: No Narrative Course This patient is now awake and sober with no psychiatric symptoms. He will be discharged home. Diagnosis Primary Impression: Alcohol intoxication Qualified Codes: F10.920 - Alcohol use, unspecified with intoxication, uncomplicated Disposition: 01 DISCHARGE HOME Condition: Stable Yesy Pastor MD Dec 19, 2017 13:18
== END 2017-12-19 13:46 | disposition home or self-care (01) ==
LOC: NEPC 11:19 → NEPJ 12-19 13:46
DX: F10.129 Alcohol abuse with intoxication, unspecified (principal); F25.0 Schizoaffective disorder, bipolar type; F41.9 Anxiety disorder, unspecified; I10 Essential (primary) hypertension; F17.200 Nicotine dependence, unspecified, uncomplicated; Y90.6 Blood alcohol level of 120-199 mg/100 ml; Z79.82 Long term (current) use of aspirin; Z79.899 Other long term (current) drug therapy
CPT/HCPCS: 70450; 80053; 80307; 82140; 84443; 85025; 93005; 96361; 96365; 99285; J3411; J7030

== ENCOUNTER 2017-12-23 09:06 | Emergency (ER) | payer OTHER ==
[~2017-12-23] VITALS: Ht 177.8 cm; Wt 100.0 kg
[~2017-12-23 09:06] MED LIST changes: +CLON0.5T PO
[2017-12-23 09:16] VITALS: BP 163/84; PULSE 64; RESP 16; TEMP 98; O2SAT 97
--- NOTE | 2017-12-23 09:21 | PD ---
HPI Chief Complaint: Psychiatric Symptoms Time Seen by Provider: 09:13 Travel History International Travel<30 days: No Contact w/Intl Traveler<30days: No History of Present Illness HPI 15-mxkr-uan-year male with history of schizophrenia, presents emergency department under the [employer] act with psychiatric symptoms. Patient states his meds have not been working for him, and he is having both visual and auditory hallucinations. Patient states she has been using alcohol to combat this. Patient was in a coffee shop this morning when he decided to take all his clothes off, and go out on the sidewalk to start praying. He states no current medical complaints. He has no pain or fever. He has no known drug allergies. PFSH Past Medical History Autoimmune Disease: No Bipolar Disorder: Yes Anxiety: Yes Depression: Yes Cancer: No (Per pt) Cardiovascular Problems: Yes (Hypertension) Chemotherapy: No Diabetes: No (Per pt) Diminished Hearing: No Endocrine: No Genitourinary: No Headaches: No (Per pt) Hypertension: Yes Immune Disorder: No Musculoskeletal: No Neurologic: No Psychiatric: Yes (Bipolar) Reproductive: No Respiratory: No Radiation Therapy: No Seizures: No (Per pt) Thyroid Disease: No Past Surgical History Abdominal Surgery: Yes (UMBILICAL HERNIA ) AICD: No Arteriovenous Shunt: No Insulin Pump: No Joint Replacement: No Pacemaker: No Other Surgery: Yes (VASECTOMY ) Social History Alcohol Use: Yes (possible heavy use, states trying to wean himself off) Tobacco Use: Yes (A PACK A DAY ) Substance Use: Yes Allergies-Medications (Allergen,Severity, Reaction): Coded Allergies: No Known Allergies (Verified Allergy, Unknown, 12/18/17) Reported Meds & Prescriptions Reported Meds & Active Scripts Active Haloperidol 5 Mg Tab 5 Mg PO BID [Benztropine] 1 MG Tab 2 Mg PO BID Olanzapine 7.5 Mg Tab 7.5 Mg PO HS Atenolol 25 Mg Tab 25 Mg PO DAILY Aspirin 81 Mg Chew 81 Mg PO DAILY Reported Clonazepam 0.5 Mg Tab 0.5 Mg PO BID Review of Systems Except as stated in HPI: all other systems reviewed are Neg General / Constitutional: No: Fever Eyes: No: Visual changes HENT: No: Headaches Cardiovascular: No: Chest Pain or Discomfort Respiratory: No: Shortness of Breath Gastrointestinal: No: Abdominal Pain Genitourinary: No: Dysuria Musculoskeletal: No: Pain Skin: No Rash Neurologic: No: Weakness Psychiatric: Positive: Disorder of Thought, Substance Abuse, No: Depression, Suicidal Ideations, Homicidal Ideation Endocrine: No: Polydipsia Hematologic/Lymphatic: No: Easy Bruising Physical Exam Narrative GENERAL: Patient is cooperative, and in no obvious distress. SKIN: Warm and dry. No signs of trauma. Normal color. Normal turgor. HEAD: Atraumatic. Normocephalic. EYES: Pupils equal and round. No scleral icterus. No injection or drainage. ENT: No nasal bleeding or discharge. Mucous membranes pink and moist. Pharynx is clear. Airways patent. NECK: Trachea midline. Supple and nontender. CARDIOVASCULAR: Regular rate and rhythm. RESPIRATORY: No accessory muscle use. Clear to auscultation. Breath sounds equal bilaterally. GASTROINTESTINAL: Abdomen soft, non-tender, nondistended. Hepatic and splenic margins not palpable. MUSCULOSKELETAL: Extremities without clubbing, cyanosis, or edema. No obvious deformities. NEUROLOGICAL: Awake and alert. No obvious cranial nerve deficits. Motor grossly within normal limits. Five out of 5 muscle strength in the arms and legs. Normal speech. Data Data Orders Orders Complete Blood Count With Diff (12/23/17 09:14) Comprehensive Metabolic Panel (12/23/17 09:14) Thyroid Stimulating Hormone (12/23/17 09:14) Urinalysis - C+S If Indicated (12/23/17 09:14) Psych Screen (12/23/17 09:14) Drug Screen, Random Urine (12/23/17 09:14) Alcohol (Ethanol) (12/23/17 09:14) MDM Medical Decision Making Medical Screen Exam Complete: Yes Emergency Medical Condition: Yes Medical Record Reviewed: Yes Differential Diagnosis Psychiatric symptoms. Schizophrenia. Psychotic break. Hallucinations. Narrative Course Patient is medically stable at time of exam. Psychiatric labs ordered per protocol. Psych screen is ordered. Patient is medically cleared for psychiatric evaluation. Condition: Stable Antonio Wadsworth Dec 23, 2017 09:21
[2017-12-23 09:35] LABS: AUTOMATED NEUTROPHIL # 5.4 TH/MM3 (1.8-7.7); BASOPHIL # 0.1 TH/MM3 (0-0.2); BASOPHIL % 0.9 % (0.0-2.0); EOSINOPHIL % 10.9 % (0.0-4.0); HEMATOCRIT 44.1 % (39.0-51.0); HEMOGLOBIN 15.2 GM/DL (13.0-17.0); LYMPHOCYTE # 1.5 TH/MM3 (1.0-4.8); MEAN CELL VOLUME 97.2 FL (80.0-100.0); MEAN CORPUSCULAR HEMOGLOBIN 33.5 PG (27.0-34.0); MEAN CORPUSCULAR HGB CONC 34.5 % (32.0-36.0); MEAN PLATELET VOLUME 7.8 FL (7.0-11.0); MONO % 9.2 % (0.0-8.0); MONOCYTE # 0.8 TH/MM3 (0-0.9); PLATELET COUNT 343 TH/MM3 (150-450); RED BLOOD COUNT 4.54 MIL/MM3 (4.50-5.90); RED CELL DISTRIBUTION WIDTH 13.7 % (11.6-17.2); WHITE BLOOD COUNT 8.7 TH/MM3 (4.0-11.0)
[2017-12-23 09:52] LABS: ALBUMIN 3.3 GM/DL (3.4-5.0); AST (GOT) 8 U/L (15-37); BICARBONATE 28.8 MEQ/L (21.0-32.0); BLOOD UREA NITROGEN 10 MG/DL (7-18); CALCIUM 9.1 MG/DL (8.5-10.1); CHLORIDE 106 MEQ/L (98-107); CREATININE 1.21 MG/DL (0.60-1.30); GLOMERULAR FILTRATION RATE 60 ML/MIN (>89); GLUCOSE,RANDOM 108 MG/DL (74-106); SODIUM (NA) 142 MEQ/L (136-145)
[2017-12-23 09:53] LABS: ALT (GPT) 19 U/L (12-78)
[2017-12-23 10:02] LABS: ALKALINE PHOSPHATASE 69 U/L (45-117); TOTAL BILIRUBIN ADULT 0.4 MG/DL (0.2-1.0); TOTAL PROTEIN 6.9 GM/DL (6.4-8.2)
[2017-12-23 10:12] LABS: BACTERIA, URINE RARE /hpf; BILIRUBIN, URINE NEG (NEG); BLOOD, URINE NEG (NEG); GLUCOSE,URINE NEG (NEG); KETONE, URINE NEG (NEG); MUCUS URINE FEW /lpf (OCC); NITRITE,URINE NEG (NEG); PH, URINE 5.5 (5.0-8.5); SQUAMOUS EPITHELIAL CELL URINE <1 /hpf (0-5); URINE COLOR YELLOW (YELLW/STRAW); URINE LEUKOCYTE ESTERASE LARGE (NEG)
--- NOTE | 2017-12-23 14:41 | PD ---
History of Present Illness Chief Complaint: Psychiatric Symptoms Time Seen by Provider: 14:15 Travel History International Travel<30 Days: No Contact w/Intl Traveler<30days: No Known affected area: No Legal Status Legal Status: On [employer] History of Present Illness: History of Present Illness HPI 18-whhp-wuw-year , single male, on disability, with history of bipolar disorder, alcohol use disorder, unspecified psychosis, presents emergency department under the [employer] act with psychiatric symptoms. The [employer] act alleges that had the patient was found naked and nonverbal. He allegedly reported that he was using alcohol intentionally with the knowledge that his meds will make him sick. Patient reported to ED provider that he has been experiencing both visual and auditory hallucinations and that he has been using alcohol to combat this. His alcohol level on arrival to the ED was nondetectable. Patient was most recently admitted to our inpatient psychiatric unit in November 2017 after a very similar episode. Patient has been monitored here in secure environment and he has been appropriate. He has not taken his clothes off or exhibited any other behaviors. Patient is seen with therapeutic case manager Antonio. The patient is alert, and oriented, he is wearing hospital paper scrubs. His speech is clear and logical. He denies current hallucinations. There is no evidence of any paranoia. He denies suicidal or homicidal ideation, intent or plan. He does report that he began to hear the voices that were telling him to take his clothes off and therefore he did such. He minimizes his use of alcohol and the effect that it might have on his mental health. He states" I am 62 years old, I do not have much to live so I want to have a good time". This was his justification for having 2-4 beers. He also states that he is having a hard time sleeping they have 4 he drinks once again to be able to sleep. The patient at this time is requesting to be discharged and has been in communication with his girlfriend. PFSH Past Medical History Bipolar Disorder: Yes Anxiety: Yes Depression: Yes Cardiovascular Problems: Yes (PT STATES HE HAD HIS HEART "CLEANED OUT") Diminished Hearing: No Hypertension: Yes Psychiatric: Yes (Bipolar) ?: Not Past Surgical History Abdominal Surgery: Yes (UMBILICAL HERNIA ) Other Surgery: Yes (VASECTOMY ) Psychiatric History Psychiatric History Hx Psychiatric Treatment: Pt had inpatient therapy while in [facility]. His last inpatient psychiatric admission was in November 2017. He follows up at [facility] with [facility] C[facility]. He reports medication compliance. 2 previous suicide attempts by overdose. History of Inpatient Treatment: Yes ([facility] 2018) Guns or firearms in home: No Social History Patient is originally from [place]. He has 2 children and multiple grandchildren. He is high school educated. He is on disability. Hx Alcohol Use: Yes (possible heavy use, states trying to wean himself off) Hx Tobacco Use: Yes (A PACK A DAY ) Hx Substance Use: Yes (2 BEERS 12/22/17) Substance Use Type: Alcohol Other Substances Used: DRINKING SINCE AGE 14 Hx of Substance Use Treatment: Yes Family Psychiatric History Mother with history of bipolar illness. Grandfather committed suicide and a later age. Allergies-Medications (Allergen,Severity, Reaction): Coded Allergies: No Known Allergies (Verified Allergy, Unknown, 12/18/17) Reported Meds & Prescriptions Reported Meds & Active Scripts Active Haloperidol 5 Mg Tab 5 Mg PO BID [Benztropine] 1 MG Tab 2 Mg PO BID Olanzapine 7.5 Mg Tab 7.5 Mg PO HS Atenolol 25 Mg Tab 25 Mg PO DAILY Aspirin 81 Mg Chew 81 Mg PO DAILY Reported Clonazepam 0.5 Mg Tab 0.5 Mg PO BID Review of Systems Psychiatric: COMPLAINS OF: Anxiety Except as stated in HPI: all other systems reviewed are Neg Mental Status Examination Appearance: Appropriate Consciousness: Alert Orientation: x4 Motor Activity: Normal gait Speech: Unremarkable Language: Adequate Fund of Knowledge: Adequate Attention and Concentration: Adequate Memory: Unremarkable Mood: Appropriate, Anxious Affect: Appropriate Thought Process & Associations: Intact, Logical, Goal directed Thought Content: Appropriate Hallucination Type: None Delusion Type: None Suicidal Ideation: No Suicidal Plan: No Suicidal Intention: No Homicidal Ideation: No Homicidal Plan: No Homicidal Intention: No Insight: Fair Judgment: Impulsive MDM Medical Decision Making Medical Record Reviewed: Yes Assessment/Plan History of Present Illness HPI 84-pshp-dph-year , single male, on disability, with history of bipolar disorder, alcohol use disorder, unspecified psychosis, presents emergency department under the [employer] act with psychiatric symptoms. The [employer] act alleges that had the patient was found naked and nonverbal. He allegedly reported that he was using alcohol intentionally with the knowledge that his meds will make him sick. Patient reported to ED provider that he has been experiencing both visual and auditory hallucinations and that he has been using alcohol to combat this. His alcohol level on arrival to the ED was nondetectable. Patient was monitor and secure environment and presented no abnormal behaviors. He denies current hallucinations. No suicidal or homicidal ideation. Patient is not manic. He is requesting to be discharged. I discussed with him several techniques to help him deal with the voices. First of all abstinence from alcohol is recommended. The use of headphones to help him drown out the voices. Calling his girlfriend when he began to hear the voices as well. A prescription of trazodone to help him sleep is provided. Risks benefits and side effects are discussed. Patient counseled on abstinence from alcohol. BA is lifted. psychiatrically stable for discharge from ED. Orders Orders Complete Blood Count With Diff (12/23/17 09:14) Comprehensive Metabolic Panel (12/23/17 09:14) Thyroid Stimulating Hormone (12/23/17 09:14) Urinalysis - C+S If Indicated (12/23/17 09:14) Psych Screen (12/23/17 09:14) Drug Screen, Random Urine (12/23/17 09:14) Alcohol (Ethanol) (12/23/17 09:14) Urine Culture (12/23/17 09:30) Diet Regular Basic (12/23/17 Lunch) Results Vital Signs Date Time Temp Pulse Resp B/P (MAP) Pulse Ox O2 Delivery O2 Flow Rate FiO2 12/23/17 09:16 98.0 64 16 163/84 (110) 97 Laboratory Tests Test 12/23/17 09:20 12/23/17 09:30 White Blood Count 8.7 Red Blood Count 4.54 Hemoglobin 15.2 Hematocrit 44.1 Mean Corpuscular Volume 97.2 Mean Corpuscular Hemoglobin 33.5 Mean Corpuscular Hemoglobin Concent 34.5 Red Cell Distribution Width 13.7 Platelet Count 343 Mean Platelet Volume 7.8 Neutrophils (%) (Auto) 62.0 Lymphocytes (%) (Auto) 17.0 Monocytes (%) (Auto) 9.2 Eosinophils (%) (Auto) 10.9 Basophils (%) (Auto) 0.9 Neutrophils # (Auto) 5.4 Lymphocytes # (Auto) 1.5 Monocytes # (Auto) 0.8 Eosinophils # (Auto) 1.0 Basophils # (Auto) 0.1 CBC Comment DIFF FINAL Differential Comment Blood Urea Nitrogen 10 Creatinine 1.21 Random Glucose 108 Total Protein 6.9 Albumin 3.3 Calcium Level 9.1 Alkaline Phosphatase 69 Aspartate Amino Transf (AST/SGOT) 8 Alanine Aminotransferase (ALT/SGPT) 19 Total Bilirubin 0.4 Sodium Level 142 Potassium Level 4.1 Chloride Level 106 Carbon Dioxide Level 28.8 Anion Gap 7 Estimat Glomerular Filtration Rate 60 Thyroid Stimulating Hormone 3rd Gen 1.000 Ethyl Alcohol Level LESS THAN 3 Urine Color YELLOW Urine Turbidity CLEAR Urine pH 5.5 Urine Specific [place] 1.007 Urine Protein NEG Urine Glucose (UA) NEG Urine Ketones NEG Urine Occult Blood NEG Urine Nitrite NEG Urine Bilirubin NEG Urine Urobilinogen LESS THAN 2.0 Urine Leukocyte Esterase LARGE Urine RBC 3 Urine WBC 13 Urine Squamous Epithelial Cells <1 Urine Bacteria RARE Urine Mucus FEW Microscopic Urinalysis Comment CULTURE INDICATED Urine Opiates Screen NEG Urine Barbiturates Screen NEG Urine Amphetamines Screen NEG Urine Benzodiazepines Screen NEG Urine Cocaine Screen NEG Urine Cannabinoids Screen NEG Date/Time Source Procedure Growth Status 12/23/17 09:30 Urine Random Urine Urine Culture Pending Received Diagnosis Primary Impression: Alcohol abuse Additional Impressions: Bipolar disorder Unspecified psychosis Psychiatrically Cleared: Yes Med/ Other Pt Specific Info: Prescription(s) given Prescriptions Trazodone (Trazodone) 100 Mg Tablet 100 MG PO HS for Control Depression, #30 TAB 0 Refills Prov: Awa Bautista 12/23/17 Disposition: 01 DISCHARGE HOME Condition: Stable Problem Qualifiers Additional Impressions: Bipolar disorder Qualified Codes: F31.61 - Bipolar disorder, current episode mixed, mild Awa Bautista Dec 23, 2017 14:41
[2017-12-23] MEDS ORDERED: TRAZ100T10 PO (14:42)
--- NOTE | 2017-12-23 14:42 | PD ---
Physical Exam Date Seen by Provider: Dec 23, 2017 Time Seen by Provider: 14:40 Narrative 62-year-old male previously medically clear for psychiatric evaluation, has been seen by psychiatric staff and deemed psychiatrically stable for discharge at this time. Patient remains medically stable for discharge. Follow-up will be based on psychiatric note. Data Data Last Documented VS Vital Signs Date Time Temp Pulse Resp B/P (MAP) Pulse Ox O2 Delivery O2 Flow Rate FiO2 12/23/17 09:16 98.0 64 16 163/84 (110) 97 Orders Orders Complete Blood Count With Diff (12/23/17 09:14) Comprehensive Metabolic Panel (12/23/17 09:14) Thyroid Stimulating Hormone (12/23/17 09:14) Urinalysis - C+S If Indicated (12/23/17 09:14) Psych Screen (12/23/17 09:14) Drug Screen, Random Urine (12/23/17 09:14) Alcohol (Ethanol) (12/23/17 09:14) Urine Culture (12/23/17 09:30) Diet Regular Basic (12/23/17 Lunch) Labs Laboratory Tests Test 12/23/17 09:20 12/23/17 09:30 White Blood Count 8.7 TH/MM3 Red Blood Count 4.54 MIL/MM3 Hemoglobin 15.2 GM/DL Hematocrit 44.1 % Mean Corpuscular Volume 97.2 FL Mean Corpuscular Hemoglobin 33.5 PG Mean Corpuscular Hemoglobin Concent 34.5 % Red Cell Distribution Width 13.7 % Platelet Count 343 TH/MM3 Mean Platelet Volume 7.8 FL Neutrophils (%) (Auto) 62.0 % Lymphocytes (%) (Auto) 17.0 % Monocytes (%) (Auto) 9.2 % Eosinophils (%) (Auto) 10.9 % Basophils (%) (Auto) 0.9 % Neutrophils # (Auto) 5.4 TH/MM3 Lymphocytes # (Auto) 1.5 TH/MM3 Monocytes # (Auto) 0.8 TH/MM3 Eosinophils # (Auto) 1.0 TH/MM3 Basophils # (Auto) 0.1 TH/MM3 CBC Comment DIFF FINAL Differential Comment Blood Urea Nitrogen 10 MG/DL Creatinine 1.21 MG/DL Random Glucose 108 MG/DL Total Protein 6.9 GM/DL Albumin 3.3 GM/DL Calcium Level 9.1 MG/DL Alkaline Phosphatase 69 U/L Aspartate Amino Transf (AST/SGOT) 8 U/L Alanine Aminotransferase (ALT/SGPT) 19 U/L Total Bilirubin 0.4 MG/DL Sodium Level 142 MEQ/L Potassium Level 4.1 MEQ/L Chloride Level 106 MEQ/L Carbon Dioxide Level 28.8 MEQ/L Anion Gap 7 MEQ/L Estimat Glomerular Filtration Rate 60 ML/MIN Thyroid Stimulating Hormone 3rd Gen 1.000 uIU/ML Ethyl Alcohol Level LESS THAN 3 MG/DL Urine Color YELLOW Urine Turbidity CLEAR Urine pH 5.5 Urine Specific [place] 1.007 Urine Protein NEG mg/dL Urine Glucose (UA) NEG mg/dL Urine Ketones NEG mg/dL Urine Occult Blood NEG Urine Nitrite NEG Urine Bilirubin NEG Urine Urobilinogen LESS THAN 2.0 MG/DL Urine Leukocyte Esterase LARGE Urine RBC 3 /hpf Urine WBC 13 /hpf Urine Squamous Epithelial Cells <1 /hpf Urine Bacteria RARE /hpf Urine Mucus FEW /lpf Microscopic Urinalysis Comment CULTURE INDICATED Urine Opiates Screen NEG Urine Barbiturates Screen NEG Urine Amphetamines Screen NEG Urine Benzodiazepines Screen NEG Urine Cocaine Screen NEG Urine Cannabinoids Screen NEG MDM Medical Record Reviewed: Yes Supervised Visit with ILEANA: Yes Narrative Course 62-year-old male previously medically clear for psychiatric evaluation, has been seen by psychiatric staff and deemed psychiatrically stable for discharge at this time. Patient remains medically stable for discharge. Follow-up will be based on psychiatric note. Patient Instructions: General Instructions Med/Other Pt SpecificInfo: No Meds Exist/No RX given Disposition: 01 DISCHARGE HOME Condition: Stable Antonio Wadsworth Dec 23, 2017 14:42
== END 2017-12-23 14:58 | disposition home or self-care (01) ==
LOC: NEDAMB 09:06 → NEPJ 14:58
DX: F31.61 Bipolar disorder, current episode mixed, mild (principal); I10 Essential (primary) hypertension; F17.200 Nicotine dependence, unspecified, uncomplicated; Z79.899 Other long term (current) drug therapy
CPT/HCPCS: 80053; 80307; 81001; 84443; 85025; 87086; 99284

== ENCOUNTER 2018-04-03 10:25 | Observation (INO) ==
[2018-04-03] MEDS ORDERED: Haloperidol Inj 5 MG/ML Ampul IM ONE (11:10)
--- NOTE | 2018-04-03 11:35 | ED ---
HPI General Chief Complaint: Psychiatric Symptoms Stated Complaint: psych eval/DBPD Time Seen by Provider: 04/03/18 11:10 Source: patient, EMS and police Mode of arrival: EMS Limitations: altered mental status History of Present Illness HPI Narrative: The patient is a 62-year-old male I was brought in as a betancur act for acute psychosis. As per Betancur act form Mr. Bond contacted 911 and recommended to be placed in an alcohol treatment detox program and stated that if he did not get rehab for his alcohol he was going to kill himself. Police also reports that he was walking make it and when she was approached he allegedly spat on the Officers face. On arrival the patient was restrained in a wheelchair with a hoodie over his head to protect staff from spitting hostile and threatening towards staff repeating "I want to go to [facility] send me to [facility]" Onset (ago): unknown Duration: constant History of same: Yes Treatments prior to arrival: placed on mental health hold and physical restraints Related Data Home Medications Medication Instructions Recorded Confirmed atenolol 25 mg PO DAILY 02/14/18 04/03/18 benztropine 2 mg PO BID 02/14/18 04/03/18 haloperidol 5 mg PO TID 02/14/18 04/03/18 haloperidol decanoate [Haldol 150 mg IM Q4W 02/14/18 04/03/18 Decanoate] olanzapine 7.5 mg PO DAILY 02/14/18 04/03/18 trazodone 100 mg PO HS 02/14/18 04/03/18 Allergies Allergy/AdvReac Type Severity Reaction Status Date / Time No Known Allergies Allergy Verified 04/03/18 11:26 Review of Systems ROS Unobtainable ROS Unobtainable: unobtainable due to mental condition [facility] Medical History Medical History Hypertension (Acute) Manic-depression (Acute) Social History Social History Substance History: No History of Abuse Second Hand Smoke Exposure: Yes Smoking Status: Current some day smoker Tobacco Type: Cigarettes How Often Do You Have a Drink Containing Alcohol: 2 to 3 times a week Recent Travel in [facility] within the Last 8 Weeks: No Recent Out of Country Travel within the Last 8 Weeks: No Immunization History Tetanus Immunization: Unable to Assess Hx Influenza Vaccine This Season: Unable to Assess Exam Narrative Exam Narrative: GENERAL: Unkempt hostile threatening trying to kick staff SKIN: Focused skin assessment warm/dry. HEAD: Atraumatic. Normocephalic. EYES: Pupils equal and round. No scleral icterus. No injection or drainage. ENT: No nasal bleeding or discharge. Mucous membranes pink and moist. NECK: Trachea midline. No JVD. CARDIOVASCULAR: Regular rate and rhythm. No murmur appreciated. RESPIRATORY: No accessory muscle use. Clear to auscultation. Breath sounds equal bilaterally. GASTROINTESTINAL: Abdomen soft, non-tender, nondistended. Hepatic and splenic margins not palpable. MUSCULOSKELETAL: No obvious deformities. No clubbing. No cyanosis. No edema. NEUROLOGICAL: Awake and alert. No obvious cranial nerve deficits. Motor grossly within normal limits. Normal speech. l. Psych Appearance: disheveled Mood: labile mood, angry and irritable mood Affect: hostile and irritable affect Attitude: belligerent Thought Content: homicidality and obsessions Judgment: poor Course Hospital Course: Hostile and threatening on arrival. Has had to chemically restrained. Reevaluation(s) Reevaluation #1: Patient was given 5 mg of IM Haldol and 2 mg of IM Ativan. He is resting comfortably at this time does not appear to be in distress and is not as hostile. He still occasional repeat centimeter [facility] I want to go to [facility] Time: 11:39 Initial Documented Vital Signs Temperature 97.9 F 04/03/18 11:00 Pulse Rate 89 04/03/18 11:00 Respiratory Rate 20 04/03/18 11:00 Blood Pressure 138/85 04/03/18 11:00 Pulse Oximetry 100 04/03/18 11:00 Last Documented Vital Signs Temperature 98.1 F 04/04/18 15:56 Pulse Rate 66 04/04/18 15:56 Respiratory Rate 18 04/04/18 15:56 Blood Pressure 163/87 H 04/04/18 15:56 Pulse Oximetry 98 04/04/18 15:56 Medical Decision Making MDM Narrative Medical Screen Exam Complete: Yes Emergency Medical Condition: Yes Lab Data Result diagrams: 04/03/18 11:21 04/04/18 07:58 Lab Results 04/03/18 04/03/18 04/03/18 Range/Units 11:20 11:21 11:21 WBC 8.4 (4.0-11.0) th/mm3 RBC 4.61 (4.50-5.90) mil/mm3 Hgb 15.5 (13.0-17.0) gm/dL Hct 45.4 (39.0-51.0) % MCV 98.4 (80.0-100.0) fL MCH 33.6 (27.0-34.0) pg MCHC 34.1 (32.0-36.0) % RDW 14.1 (11.6-17.2) % Plt Count 261 (150-450) th/mm3 MPV 7.4 (7.0-11.0) fL Neut % (Auto) 71.0 H (16.0-70.0) % Lymph % (Auto) 15.7 (9.0-44.0) % Dixie % (Auto) 11.6 H (0.0-8.0) % Eos % (Auto) 1.2 (0.0-4.0) % Baso % (Auto) 0.5 (0.0-2.0) % Neut # (Auto) 6.0 (1.8-7.7) th/mm3 Lymph # (Auto) 1.3 (1.0-4.8) th/mm3 Dixie # (Auto) 1.0 H (0.0-0.9) th/mm3 Eos # (Auto) 0.1 (0.0-0.4) th/mm3 Baso # (Auto) 0.0 (0.0-0.2) th/mm3 WBC Differential . Differential Comment Auto diff final Sodium 138 (136-145) meq/L Potassium 4.0 (3.5-5.1) meq/L Chloride 103 (98-107) meq/L Carbon Dioxide 22.6 (21.0-32.0) meq/L Anion Gap 12 (5-15) meq/L BUN 12 (7-18) mg/dL Creatinine 1.26 (0.60-1.30) mg/dL Estimated GFR 58 L (>89) mL/min Random Glucose 170 H (74-106) mg/dL Calcium 9.3 (8.5-10.1) mg/dL Total Bilirubin 1.2 H (0.2-1.0) mg/dL AST 29 (15-37) U/L ALT 25 (12-78) U/L Alkaline Phosphatase 61 (45-117) U/L Total Creatine Kinase 489 H (39-308) U/L CK-MB (CK-2) 3.8 H (0.5-3.6) ng/mL CK-MB (CK-2) % 0.8 (0.0-4.0) % Total Protein 7.6 (6.4-8.2) g/dL Albumin 4.2 (3.4-5.0) g/dL Urine Color (Yellw/Straw) Urine Clarity (Clear) Urine pH (5.0-8.5) Ur Specific [place] (1.002-1.035) Urine Protein (Neg-Trace) mg/dL Urine Glucose (UA) (Negative) mg/dL Urine Ketones (Negative) mg/dL Urine Occult Blood (Negative) Urine Nitrate (Negative) Urine Bilirubin (Negative) Urine Urobilinogen (Less than 2) mg/dL Ur Leukocyte Esterase (Negative) Urine WBC (0-5) /hpf Micro UA Comment Ur Microscopic Review Urine Culture Comments Salicylates (2.8-20.0) mg/dL Urine Opiates Screen Neg (Neg) Acetaminophen Less than 2.0 L (10.0-30.0) mcg/mL Ur Barbiturates Screen Neg (Neg) Ur Amphetamines Screen Neg (Neg) U Benzodiazepines Scrn Neg (Neg) Urine Cocaine Screen Neg (Neg) U Cannabinoids Screen Neg (Neg) Serum Alcohol Less than 3 (0-5) mg/dL 04/03/18 04/04/18 04/04/18 Range/Units 11:21 07:58 07:58 WBC (4.0-11.0) th/mm3 RBC (4.50-5.90) mil/mm3 Hgb (13.0-17.0) gm/dL Hct (39.0-51.0) % MCV (80.0-100.0) fL MCH (27.0-34.0) pg MCHC (32.0-36.0) % RDW (11.6-17.2) % Plt Count (150-450) th/mm3 MPV (7.0-11.0) fL Neut % (Auto) (16.0-70.0) % Lymph % (Auto) (9.0-44.0) % Dixie % (Auto) (0.0-8.0) % Eos % (Auto) (0.0-4.0) % Baso % (Auto) (0.0-2.0) % Neut # (Auto) (1.8-7.7) th/mm3 Lymph # (Auto) (1.0-4.8) th/mm3 Dixie # (Auto) (0.0-0.9) th/mm3 Eos # (Auto) (0.0-0.4) th/mm3 Baso # (Auto) (0.0-0.2) th/mm3 WBC Differential Differential Comment Sodium 145 (136-145) meq/L Potassium 3.8 (3.5-5.1) meq/L Chloride 110 H (98-107) meq/L Carbon Dioxide 28.5 (21.0-32.0) meq/L Anion Gap 7 (5-15) meq/L BUN 8 (7-18) mg/dL Creatinine 1.09 (0.60-1.30) mg/dL Estimated GFR 68 L (>89) mL/min Random Glucose 100 (74-106) mg/dL Calcium 8.3 L D (8.5-10.1) mg/dL Total Bilirubin (0.2-1.0) mg/dL AST (15-37) U/L ALT (12-78) U/L Alkaline Phosphatase (45-117) U/L Total Creatine Kinase 559 H (39-308) U/L CK-MB (CK-2) 3.0 (0.5-3.6) ng/mL CK-MB (CK-2) % 0.5 (0.0-4.0) % Total Protein (6.4-8.2) g/dL Albumin (3.4-5.0) g/dL Urine Color (Yellw/Straw) Urine Clarity (Clear) Urine pH (5.0-8.5) Ur Specific [place] (1.002-1.035) Urine Protein (Neg-Trace) mg/dL Urine Glucose (UA) (Negative) mg/dL Urine Ketones (Negative) mg/dL Urine Occult Blood (Negative) Urine Nitrate (Negative) Urine Bilirubin (Negative) Urine Urobilinogen (Less than 2) mg/dL Ur Leukocyte Esterase (Negative) Urine WBC (0-5) /hpf Micro UA Comment Ur Microscopic Review Urine Culture Comments Salicylates 4.9 (2.8-20.0) mg/dL Urine Opiates Screen (Neg) Acetaminophen (10.0-30.0) mcg/mL Ur Barbiturates Screen (Neg) Ur Amphetamines Screen (Neg) U Benzodiazepines Scrn (Neg) Urine Cocaine Screen (Neg) U Cannabinoids Screen (Neg) Serum Alcohol (0-5) mg/dL 04/04/18 Range/Units 17:15 WBC (4.0-11.0) th/mm3 RBC (4.50-5.90) mil/mm3 Hgb (13.0-17.0) gm/dL Hct (39.0-51.0) % MCV (80.0-100.0) fL MCH (27.0-34.0) pg MCHC (32.0-36.0) % RDW (11.6-17.2) % Plt Count (150-450) th/mm3 MPV (7.0-11.0) fL Neut % (Auto) (16.0-70.0) % Lymph % (Auto) (9.0-44.0) % Dixie % (Auto) (0.0-8.0) % Eos % (Auto) (0.0-4.0) % Baso % (Auto) (0.0-2.0) % Neut # (Auto) (1.8-7.7) th/mm3 Lymph # (Auto) (1.0-4.8) th/mm3 Dixie # (Auto) (0.0-0.9) th/mm3 Eos # (Auto) (0.0-0.4) th/mm3 Baso # (Auto) (0.0-0.2) th/mm3 WBC Differential Differential Comment Sodium (136-145) meq/L Potassium (3.5-5.1) meq/L Chloride (98-107) meq/L Carbon Dioxide (21.0-32.0) meq/L Anion Gap (5-15) meq/L BUN (7-18) mg/dL Creatinine (0.60-1.30) mg/dL Estimated GFR (>89) mL/min Random Glucose (74-106) mg/dL Calcium (8.5-10.1) mg/dL Total Bilirubin (0.2-1.0) mg/dL AST (15-37) U/L ALT (12-78) U/L Alkaline Phosphatase (45-117) U/L Total Creatine Kinase (39-308) U/L CK-MB (CK-2) (0.5-3.6) ng/mL CK-MB (CK-2) % (0.0-4.0) % Total Protein (6.4-8.2) g/dL Albumin (3.4-5.0) g/dL Urine Color Colorless (Yellw/Straw) Urine Clarity Clear (Clear) Urine pH 6.0 (5.0-8.5) Ur Specific [place] 1.001 L (1.002-1.035) Urine Protein Negative (Neg-Trace) mg/dL Urine Glucose (UA) Negative (Negative) mg/dL Urine Ketones Negative (Negative) mg/dL Urine Occult Blood Small H (Negative) Urine Nitrate Negative (Negative) Urine Bilirubin Negative (Negative) Urine Urobilinogen Less than 2 (Less than 2) mg/dL Ur Leukocyte Esterase Negative (Negative) Urine WBC Less than 1 (0-5) /hpf Micro UA Comment Culture not ind Ur Microscopic Review Not Reportable Urine Culture Comments Culture not ind Salicylates (2.8-20.0) mg/dL Urine Opiates Screen (Neg) Acetaminophen (10.0-30.0) mcg/mL Ur Barbiturates Screen (Neg) Ur Amphetamines Screen (Neg) U Benzodiazepines Scrn (Neg) Urine Cocaine Screen (Neg) U Cannabinoids Screen (Neg) Serum Alcohol (0-5) mg/dL Discharge Plan Discharge Disposition Patient Disposition: 01 Discharge Home Discharge Condition Condition: Stable Discharge Order Discharge Orders: Discharge Order (Routine); Ordered 04/04/18 Ordered By: Monica Rodrigues Discharge Details Anticipated Discharge Date: 04/04/18 Discharge Comment: Ok to discharge only if cleared by psychiatry and Betancur Act lifted. Physicians Team ED Provider: Davis Ernst Primary Care Provider: UNKNOWN, Attending Provider: Greg Glynn Other Providers: [employer] Status ED Status: Left Department Discharge Information Discharge Date/Time: 04/03/18 16:20
[2018-04-03 11:42] LABS: Baso % (Auto) 0.5 % (0.0-2.0); Eos # (Auto) 0.1 th/mm3 (0.0-0.4); Eos % (Auto) 1.2 % (0.0-4.0); Hematocrit 45.4 % (39.0-51.0); Hemoglobin 15.5 gm/dL (13.0-17.0); Lymph # (Auto) 1.3 th/mm3 (1.0-4.8); Lymph % (Auto) 15.7 % (9.0-44.0); Mean Corpuscular HGB Conc 34.1 % (32.0-36.0); Mean Corpuscular Hemoglobin 33.6 pg (27.0-34.0); Mean Corpuscular Volume 98.4 fL (80.0-100.0); Mean Platelet Volume 7.4 fL (7.0-11.0); Mono % (Auto) 11.6 % (0.0-8.0); Platelet Count 261 th/mm3 (150-450); Red Blood Count 4.61 mil/mm3 (4.50-5.90); Red Cell Distribution Width 14.1 % (11.6-17.2); White Blood Count 8.4 th/mm3 (4.0-11.0)
[2018-04-03 12:00] LABS: Anion Gap 12 meq/L (5-15)
[2018-04-03 12:06] LABS: Alanine Aminotransferase 25 U/L (12-78); Albumin 4.2 g/dL (3.4-5.0); Alkaline Phosphatase 61 U/L (45-117); Aspartate Aminotransferase 29 U/L (15-37); Blood Urea Nitrogen 12 mg/dL (7-18); Calcium 9.3 mg/dL (8.5-10.1); Carbon Dioxide 22.6 meq/L (21.0-32.0); Chloride 103 meq/L (98-107); Creatine Kinase 489 U/L (39-308); Glomerular Filtration Rate 58 mL/min (>89); Glucose,Random 170 mg/dL (74-106); Sodium 138 meq/L (136-145); Total Protein 7.6 g/dL (6.4-8.2)
[2018-04-03 12:34] LABS: CKMB Percent 0.8 % (0.0-4.0); Creatine Kinase MB 3.8 ng/mL (0.5-3.6)
[2018-04-03] MEDS ORDERED: Bisacodyl 10 MG Supp RECTAL PRN (13:00)
[2018-04-03] MEDS: Sod Chloride 0.9% Inj 1,000 ML IV.CONT SCH ×2 (13:32→20:38)
[2018-04-03 13:42] LABS: Amphetamine Screen,Urine Neg (Neg); Barbiturate Screen,Urine Neg (Neg); Cannabinoid Screen,Urine Neg (Neg); Cocaine Screen,Urine Neg (Neg)
[2018-04-03 13:44] LABS: Opiate Screen,Urine Neg (Neg)
[2018-04-03] MEDS ORDERED: Haloperidol Inj 5 MG/ML Ampul IM PRN (15:05)
--- NOTE | 2018-04-03 15:07 | P.HPIM ---
History of Present Illness Primary Care Physician: UNKNOWN History of Present Illness: This patient is a 62-year-old male who was brought in as a Betancur's act for acute psychosis. The patient has an extensive alcohol abuse history and was recently placed in an alcohol treatment detox program. The patient was brought in to our facility with reports that he was acting aggressively and screaming that he wanted to go to custodial. As per documentation when the patient was approached by police officers he began to spit in their faces. He was then brought into our emergency department for evaluation. The patient is currently not responding to questions or commands he appears to be sedated after being given Haldol and Ativan in the emergency department. He does not appear to be in any acute distress at this time. A full history and physical is difficult to assess at the moment because the patient is sedated. Review of Systems Patient sedated full review of systems difficult to obtain. [facility] - History History Provided By: Patient - Medical History Medical History: Medical History (Last Reviewed 04/03/18 @ 13:50 by Carolyn Martinez) Manic-depression (Acute) Hypertension (Acute) - Tobacco History Second Hand Smoke Exposure: Yes Tobacco Use In Past 30 Days: Yes Smoking Status: Current every day smoker Tobacco Type: Cigarettes - Alcohol History How Often Do You Have a Drink Containing Alcohol: 4 or more times a week - Substance Use History Substance History: No History of Abuse - Travel History Recent Travel in the [place] Within the Last 8 Weeks: No Recent Travel Out of the Country Within the Last 8 Weeks: No - Immunization History Tetanus Immunization: Unable to Assess Hx Influenza Vaccine This Season: Unable to Assess Medications and Allergies Active Medications: Active Medications Al Hydroxide/Mg Hydroxide (Milk Of Magnesia Liq) 30 ml PO Q12H PRN PRN Reason: Mild Constipation Bisacodyl (Dulcolax Supp) 10 mg RECTAL DAILY PRN PRN Reason: SEVERE CONSITIPATION Sodium Chloride (Ns Inj) 1,000 mls @ 150 mls/hr IV.CONT .[id number] [facility] Last Admin: 04/03/18 13:32 Dose: 150 mls/hr Lactulose (Lactulose Liq) 30 ml PO DAILY PRN PRN Reason: SEVERE CONSITIPATION Senna/Docusate Sodium (Pam-Colace) 1 tab PO BID [facility] Sennosides (Senokot) 17.2 mg PO Q12H PRN PRN Reason: Moderate Constipation Allergies Allergy/AdvReac Type Severity Reaction Status Date / Time No Known Allergies Allergy Verified 04/03/18 11:26 Home Medications Medication Instructions Recorded Confirmed Type atenolol 25 mg PO DAILY 02/14/18 04/03/18 History benztropine 2 mg PO BID 02/14/18 04/03/18 History haloperidol 5 mg PO TID 02/14/18 04/03/18 History haloperidol decanoate [Haldol 150 mg IM Q4W 02/14/18 04/03/18 History Decanoate] olanzapine 7.5 mg PO DAILY 02/14/18 04/03/18 History trazodone 100 mg PO HS 02/14/18 04/03/18 History Exam Vital signs: Vital Signs 04/03/18 11:00 04/03/18 12:30 04/03/18 13:21 Temperature 97.9 F 97.7 F 97.8 F Pulse Rate 89 77 80 Respiratory Rate 20 18 17 Blood Pressure 138/85 132/68 124/83 Pulse Oximetry 100 100 98 Intake & Output 04/02/18 04/03/18 04/03/18 18:59 06:59 18:59 Weight 230 kg Narrative: General patient in no acute distress. Patient is sedated HEENT extraocular movements are intact, clear oropharyngeal mucosa Cardiovascular S1-S2 audible, RRR, no murmurs rubs or gallops Respiratory clear to auscultation bilaterally Abdomen soft, nontender, nondistended, normal bowel sounds Extremities no edema 2+ distal pulses in bilateral upper and lower extremities Neuro patient does move all 4 extremities sensation appears to be intact bilaterally full neurological examination difficult to assess as he is currently sedated. Results - Labs CBC & Chem 7: 04/03/18 11:21 04/03/18 11:21 Labs: Short CBC 04/03/18 Range/Units 11:21 WBC 8.4 (4.0-11.0) th/mm3 Hgb 15.5 (13.0-17.0) gm/dL Hct 45.4 (39.0-51.0) % Plt Count 261 (150-450) th/mm3 BMP 04/03/18 11:21 Sodium 138 Potassium 4.0 Chloride 103 Carbon Dioxide 22.6 BUN 12 Creatinine 1.26 Calcium 9.3 Cardiac Enzymes 04/03/18 Range/Units 11:21 Total Creatine Kinase 489 H (39-308) U/L CK-MB (CK-2) 3.8 H (0.5-3.6) ng/mL Liver Function 04/03/18 Range/Units 11:21 Total Bilirubin 1.2 H (0.2-1.0) mg/dL AST 29 (15-37) U/L ALT 25 (12-78) U/L Alkaline Phosphatase 61 (45-117) U/L Albumin 4.2 (3.4-5.0) g/dL Caprini VTE Risk Assessment Caprini VTE Risk Assessment: No/Low Risk (score <= 1) Caprini Risk Assessment Model: Point Value = 1 Point Value = 2 Point Value = 3 Point Value = 5 Age 41-60 Minor surgery BMI > 25 kg/m2 Swollen legs Varicose veins or History of unexplained or recurrent spontaneous Oral contraceptives or hormone replacement Sepsis (< 1 month) Serious lung disease, including pneumonia (< 1 month) Abnormal pulmonary function Acute myocardial infarction Congestive heart failure (< 1 month) History of inflammatory bowel disease Medical patient at bed rest Age 61-74 Arthroscopic surgery Major open surgery (> 45 min) Laparoscopic surgery (> 45 min) Malignancy Confined to bed (> 72 hours) Immobilizing plaster cast Central venous access Age >= 75 History of VTE Family history of VTE Factor V Leiden Prothrombin [id number] Lupus anticoagulant Anticardiolipin antibodies Elevated serum homocysteine Heparin-induced thrombocytopenia Other congenital or acquired thrombophilia Stroke (< 1 month) Elective arthroplasty Hip, pelvis, or leg fracture Acute spinal cord injury (< 1 month) Prophylaxis Regimen: Total Risk Factor Score Risk Level Prophylaxis Regimen 0-1 Low Early ambulation 2 Moderate Order ONE of the following: *Sequential Compression Device (SCD) *Heparin 5000 units SQ BID 3-4 Higher Order ONE of the following medications: *Heparin 5000 units SQ TID *Enoxaparin/Lovenox 40 mg SQ daily (WT < 150 kg, CrCl > 30 mL/min) *Enoxaparin/Lovenox 30 mg SQ daily (WT < 150 kg, CrCl > 10-29 mL/min) *Enoxaparin/Lovenox 30 mg SQ BID (WT < 150 kg, CrCl > 30 mL/min) AND/OR *Sequential Compression Device (SCD) 5 or more Highest Order ONE of the following medications: *Heparin 5000 units SQ TID (Preferred with Epidurals) *Enoxaparin/Lovenox 40 mg SQ daily (WT < 150 kg, CrCl > 30 mL/min) *Enoxaparin/Lovenox 30 mg SQ daily (WT < 150 kg, CrCl > 10-29 mL/min) *Enoxaparin/Lovenox 30 mg SQ BID (WT < 150 kg, CrCl > 30 mL/min) AND *Sequential Compression Device (SCD) Assessment and Plan - Plan This patient is a 62-year-old male with an extensive alcohol use history. He was brought in after he was found to be extremely aggressive and psychotic. As per documentation the patient was spitting on police officers faces. After initial evaluation in the emergency department he was given Haldol and Ativan and was subsequently sedated. CPK came back elevated and I was called to evaluate the patient for admission. 1. Acute rhabdomyolysis 2. Acute psychosis The patient presented with aggressive behavior. He has a documented history of alcohol abuse. CPK level came back elevated at 489. He was started on IV fluids and will be continued on IV fluids throughout the hospitalization. In a.m. CPK level has been ordered and will be followed up. Psychiatry will be consulted to evaluate the patient. After the patient's sedation wears off his neuro status will be reassessed. We will follow-up with her conditions from psychiatry.
--- NOTE | 2018-04-03 15:59 | P.CONPSY ---
Provisional Diagnosis Admission Date: April 03, 2018 12:56 [place] I.: Bipolar disorder most recent episode mixed severe with psychotic features History of Present Illness Service: Psychiatry Consult date: 04/03/18 Requesting Physician: Dee Paniagua Reason for Consult: Assessment/Pipe oliver Primary Care Provider: UNKNOWN History of Present Illness: Patient is a 62-year-old white male who comes here under Betancur act after being found running naked in the streets psychotic screaming and yelling needing ETO of Haldol and Ativan in the ED after spending at some of the staff. Urine toxicology was negative blood alcohol level was negative. Asked to see patient because of behavior. At the present time patient sitting on the edge of his cot in his room on city pod he has a blanket covering himself he is alert oriented calm and cooperative he acknowledges being bipolar acknowledges [facility]rit[facility] and being on multiple medications including Haldol Decanoate. He states he lives with his girlfriend of about 6 months acknowledges being an alcoholic that he is last drink was about 2 days ago he drinks beer during the day. He says he is compliant with his medication. He did have auditory hallucinations though he denies them at the present time. He denies suicidality homicidality voices or visions at this time patient does not meet Betancur act criteria. But for now I would allow the Betancur act 3 main overnight as a precaution against him relapsing. We will also offer him his schedule psychotropic medications that include Haldol Decanoate 150 mg IM to be given today, Haldol 5 mg p.o. twice daily Cogentin 1 mg p.o. twice daily and Zyprexa 7.5 mg p.o. at bedtime thanks for the consult please notify me tomorrow the patient's disposition he is not at this time a candidate for [facility] or for 4 E. Review of Systems Per med surge assessments PMFSH - History History Provided By: Patient - Medical History Medical History: Medical History (Last Reviewed 04/03/18 @ 13:50 by Carolyn Martinez) Manic-depression (Acute) Hypertension (Acute) - Tobacco History Second Hand Smoke Exposure: Yes Tobacco Use In Past 30 Days: Yes Smoking Status: Current every day smoker Tobacco Type: Cigarettes - Alcohol History How Often Do You Have a Drink Containing Alcohol: 4 or more times a week - Substance Use History Substance History: No History of Abuse - Travel History Recent Travel in the [place] Within the Last 8 Weeks: No Recent Travel Out of the Country Within the Last 8 Weeks: No - Immunization History Tetanus Immunization: Unable to Assess Hx Influenza Vaccine This Season: Unable to Assess Medications and Allergies Active Medications: Active Medications Al Hydroxide/Mg Hydroxide (Milk Of Magnesia Liq) 30 ml PO Q12H PRN PRN Reason: Mild Constipation Benztropine Mesylate (Cogentin) 1 mg PO BID YAYA Bisacodyl (Dulcolax Supp) 10 mg RECTAL DAILY PRN PRN Reason: SEVERE CONSITIPATION Haloperidol (Haldol) 5 mg PO BID YAYA Haloperidol Decanoate (Haldol Decanoate Ini) 150 mg IM ONCE ONE Stop: 04/03/18 15:55 Haloperidol Lactate (Haldol Inj) 2 mg IM Q12H PRN PRN Reason: PSYCHOSIS Sodium Chloride (Ns Inj) 1,000 mls @ 150 mls/hr IV.CONT .Q6H40M REPLACED BY [facility] Last Admin: 04/03/18 13:32 Dose: 150 mls/hr Sodium Chloride (Ns Inj) 250 mls @ 0 mls/hr IV.SIG BOLUS YAYA Lactulose (Lactulose Liq) 30 ml PO DAILY PRN PRN Reason: SEVERE CONSITIPATION Olanzapine (Zyprexa) 7.5 mg PO HS REPLACED BY [facility] Senna/Docusate Sodium (Pam-Colace) 1 tab PO BID REPLACED BY [facility] Sennosides (Senokot) 17.2 mg PO Q12H PRN PRN Reason: Moderate Constipation Allergies Allergy/AdvReac Type Severity Reaction Status Date / Time No Known Allergies Allergy Verified 04/03/18 11:26 Home Medications Medication Instructions Recorded Confirmed Type atenolol 25 mg PO DAILY 02/14/18 04/03/18 History benztropine 2 mg PO BID 02/14/18 04/03/18 History haloperidol 5 mg PO TID 02/14/18 04/03/18 History haloperidol decanoate [Haldol 150 mg IM Q4W 02/14/18 04/03/18 History Decanoate] olanzapine 7.5 mg PO DAILY 02/14/18 04/03/18 History trazodone 100 mg PO HS 02/14/18 04/03/18 History Exam Vital signs: Vital Signs 04/03/18 11:00 04/03/18 12:30 04/03/18 13:21 Temperature 97.9 F 97.7 F 97.8 F Pulse Rate 89 77 80 Respiratory Rate 20 18 17 Blood Pressure 138/85 132/68 124/83 Pulse Oximetry 100 100 98 04/03/18 15:08 Temperature 97.7 F Pulse Rate 69 Respiratory Rate 16 Blood Pressure 124/77 Pulse Oximetry 99 Intake & Output 04/02/18 04/03/18 04/03/18 18:59 06:59 18:59 Weight 230 kg Narrative: Patient sitting quietly on the edge of his gurney in the sea pod Mental Status Examination Consciousness: Alert Orientation: Person, Place, Date/Time, Situation Motor Activity: Normal gait Speech: Unremarkable Language: Adequate Fund of Knowledge: Adequate Attention and Concentration: Adequate Memory: Unremarkable Mood: Other Affect: Other (Euthymic good range and intensity) Thought Process & Associations: Linear Thought Content: Appropriate Hallucination Type: Auditory (Diminishing today) Delusion Type: Other Suicidal Ideation: No (Mildly vigilant) Suicidal Plan: No Suicidal Intention: No Homicidal Ideation: No Homicidal Plan: No Homicidal Intention: No Insight: Fair Judgment: Impulsive Assessment and Plan - Assessment (1) Bipolar I disorder, most recent episode mixed, severe with psychotic features Code(s): F31.64 - Bipolar disorder, current episode mixed, severe, with psychotic features Status: Acute (2) Alcohol abuse Code(s): F10.10 - Alcohol abuse, uncomplicated Status: Acute - Plan Plan: Estimated LOS: [] days Patient appears to be responding well to the initial Haldol injection. He is also been without alcohol for 2-3 days plus which may also be encouraging. I have ordered his routine psychotropic medications. If patient remains stable overnight and was is been admitted to observation and the sea pod then can consider discharge tomorrow with him to follow-up [facility] medication management and injection management Justification for Continued Inpatient Stay: At this time patient may decompensate a place to a lower level of care Discharge Planning: See above hopefully to return home with his girlfriend Request Healthcare Surrogate/Guardian Advocate?: No
[2018-04-03] MEDS ORDERED: Sodium Chlor 0.9% Inj 250 ML IV.SIG SCH (16:00)
[2018-04-03] MEDS ORDERED: Haloperidol Decanoate Inj 50 MG/ML Ampul IM ONE (17:00)
[2018-04-03] MEDS: Haloperidol 5 MG Tablet PO SCH (21:09)
[2018-04-03] MEDS: Senna/Docusate Sodium 8.6/50 MG Tablet PO SCH (21:09)
[2018-04-04] MEDS: Sod Chloride 0.9% Inj 1,000 ML IV.CONT SCH ×3 (03:21→17:46)
[2018-04-04 08:41] LABS: Calcium 8.3 mg/dL (8.5-10.1); Carbon Dioxide 28.5 meq/L (21.0-32.0); Potassium 3.8 meq/L (3.5-5.1)
--- NOTE | 2018-04-04 08:46 | P.PN ---
Subjective Interval history: Follow-up for acute psychosis, alcohol abuse, mild rhabdomyolysis. The patient reports feeling much better today. He states he does feel slightly sore, but otherwise no other medical complaints. Denies any fever/chills, lightheadedness , dizziness, chest pain, shortness of breath, abdominal or urinary complaints. He is awake, alert, oriented 4. He feels ready to go home. He lives with his girlfriend. Physical Exam Vital signs: Vital Signs 04/03/18 11:00 04/03/18 12:30 04/03/18 13:21 Temperature 97.9 F 97.7 F 97.8 F Pulse Rate 89 77 80 Respiratory Rate Blood Pressure 138/85 132/68 124/83 Pulse Oximetry 100 100 98 04/03/18 15:08 04/03/18 16:20 04/03/18 20:00 Temperature 97.7 F 97.7 F 98.3 F Pulse Rate 69 86 78 Respiratory Rate Blood Pressure 124/77 130/76 128/68 Pulse Oximetry 99 99 98 04/04/18 00:00 04/04/18 03:20 04/04/18 07:32 Temperature 97.9 F 96.6 F L Pulse Rate 78 76 74 Respiratory Rate 16 Blood Pressure 130/72 128/68 141/83 H Pulse Oximetry 99 98 Intake & Output 04/03/18 04/04/18 04/04/18 18:59 06:59 18:59 Intake Total 240 / 240 1999 Output Total 550 / 550 Balance -310 / -310 1999 Weight 102.6 kg Intake: IV 1999 NS Inj 1,000 ML @ 150 mls/hr IV [address] [facility] Rx#:[id number] Oral 240 / 240 Output: Urine 550 / 550 Other: # Voids 2 Date of Last Bowel Movement 04/03/18 04/03/18 # Bowel Movements 1 Weight On Admission 102.512 kg Narrative: GENERAL: Well-nourished, well-developed middle-age male patient in [facility]. SKIN: Warm and dry. No rash. HEENT: Normocephalic. Atraumatic. Pupils equal and round. Mucous membranes pink and moist. CARDIOVASCULAR: Regular rate and rhythm. No murmur appreciated. RESPIRATORY: No accessory muscle use. Clear to auscultation. Breath sounds equal bilaterally. GASTROINTESTINAL: Abdomen soft, non-tender, nondistended. Normoactive bowel sounds x4. MUSCULOSKELETAL: No obvious deformities. Extremities without clubbing, cyanosis , or edema. NEUROLOGICAL: Awake and alert. No obvious cranial nerve deficits. Motor grossly within normal limits. Moving all extremities spontaneously. Normal speech. PSYCHIATRIC: Appropriate mood and affect; insight and judgment normal. Results - Labs CBC & Chem 7: 04/03/18 11:21 04/04/18 07:58 Laboratory Results - last 24 hr 04/03/18 04/03/18 04/03/18 11:20 11:21 11:21 WBC 8.4 RBC 4.61 Hgb 15.5 Hct 45.4 MCV 98.4 MCH 33.6 MCHC 34.1 RDW 14.1 Plt Count 261 MPV 7.4 Neut % (Auto) 71.0 H Lymph % (Auto) 15.7 Weber % (Auto) 11.6 H Eos % (Auto) 1.2 Baso % (Auto) 0.5 Neut # (Auto) 6.0 Lymph # (Auto) 1.3 Weber # (Auto) 1.0 H Eos # (Auto) 0.1 Baso # (Auto) 0.0 WBC Differential . Differential Comment Auto diff final Sodium 138 Potassium 4.0 Chloride 103 Carbon Dioxide 22.6 Anion Gap 12 BUN 12 Creatinine 1.26 Estimated GFR 58 L Random Glucose 170 H Calcium 9.3 Total Bilirubin 1.2 H AST 29 ALT 25 Alkaline Phosphatase 61 Total Creatine Kinase 489 H CK-MB (CK-2) 3.8 H CK-MB (CK-2) % 0.8 Total Protein 7.6 Albumin 4.2 Salicylates Urine Opiates Screen Neg Acetaminophen Less than 2.0 L Ur Barbiturates Screen Neg Ur Amphetamines Screen Neg U Benzodiazepines Scrn Neg Urine Cocaine Screen Neg U Cannabinoids Screen Neg Serum Alcohol Less than 3 04/03/18 04/04/18 04/04/18 11:21 07:58 07:58 WBC RBC Hgb Hct MCV MCH MCHC RDW Plt Count MPV Neut % (Auto) Lymph % (Auto) Weber % (Auto) Eos % (Auto) Baso % (Auto) Neut # (Auto) Lymph # (Auto) Weber # (Auto) Eos # (Auto) Baso # (Auto) WBC Differential Differential Comment Sodium 145 Potassium 3.8 Chloride 110 H Carbon Dioxide 28.5 Anion Gap 7 BUN 8 Creatinine 1.09 Estimated GFR 68 L Random Glucose 100 Calcium 8.3 L D Total Bilirubin AST ALT Alkaline Phosphatase Total Creatine Kinase 559 H CK-MB (CK-2) CK-MB (CK-2) % Total Protein Albumin Salicylates 4.9 Urine Opiates Screen Acetaminophen Ur Barbiturates Screen Ur Amphetamines Screen U Benzodiazepines Scrn Urine Cocaine Screen U Cannabinoids Screen Serum Alcohol Assessment and Plan - Plan 62-year-old male with history of hypertension, bipolar disorder, depression, presents under Betancur act with acute psychosis Acute psychosis/encephalopathy: Patient reportedly with extremely aggressive and psychotic behavior upon arrival, spitting on [employer] spaces, given Haldol/Ativan ER. -UDS and EtOH level unremarkable -Betancur act in place -Consulted psychiatry, restarted the patient on his home meds of Haldol, Cogentin, Zyprexa -The patient is now AAO 4, appears at baseline -Await repeat evaluation by psychiatry -Continue outpatient follow-up with psychiatry Mild rhabdomyolysis: CPK 489, 559 -Given IV fluid hydration -Encouraged patient to continue oral fluid hydration after discharge Hypertension: Chronic, BP fairly well-controlled -Continue patient's atenolol -Monitor BP, adjust antihypertensives as needed Alcohol abuse: Chronic, EtOH level negative -Counseled on continued cessation from alcohol -No signs of withdrawal at this time DVT prophylaxis: Patient is ambulatory Discharge Planning: The patient is medically stable. Will discharge when cleared by psychiatry. Discharge patient to home Condition on discharge: Stable Cardiac diet as tolerated Ad Arline activity Rx written: Continue home medications Follow-up with primary care physician and psychiatry
[2018-04-04 09:02] LABS: CKMB Percent 0.5 % (0.0-4.0)
[2018-04-04] MEDS ORDERED: Atenolol 25 MG Tablet PO SCH (10:00)
[2018-04-04] MEDS: Haloperidol 5 MG Tablet PO SCH (11:16)
[2018-04-04] MEDS: Senna/Docusate Sodium 8.6/50 MG Tablet PO SCH (11:16)
[2018-04-04 15:57] VITALS: BP 163/87; PULSE 66; RESP 18; TEMP 98.1; O2SAT 98
[2018-04-04 18:35] LABS: Bilirubin,Urine Negative (Negative); Clarity,Urine Clear (Clear); Color,Urine Colorless (Yellw/Straw); Glucose,Urine (UA) Negative (Negative); Leukocyte Esterase,Urine Negative (Negative); Nitrite,Urine Negative (Negative); Specific Gravity,Urine 1.001 (1.002-1.035)
== END 2018-04-04 20:30 | disposition home or self-care (01) ==
LOC: NEPC 10:25 → NEDA 10:25 → NEPFCDU 16:20
PROVIDERS: ADMIT Hospitalist; ATTEND Hospitalist